=== PATIENT | male | born 1935 | race Caucasian/White ===

== ENCOUNTER 2018-05-19 17:10 | Inpatient (IN) | payer MEDICARE, OTHER ==
--- NOTE | 2018-05-19 17:18 | EDM.PDOC ---
ED HPI GENERAL MEDICAL PROBLEM - General Chief Complaint: General Stated Complaint: fever, cough, lethargic Time Seen by Provider: 05/19/18 17:10 Source of Information: Reports: Patient, Family, [facility] Records History Limitations: Reports: No Limitations - History of Present Illness INITIAL COMMENTS - FREE TEXT/NARRATIVE: in with c/o fever and chills, cough, not eating or drinking well for the past few days, no nvdc Onset: Gradual Duration: Other (past few days) Severity: Moderate Improves with: Reports: None Worsens with: Reports: None Associated Symptoms: Reports: Cough, Weakness Treatments SECURITIES ADVISER: Reports: Acetaminophen - Related Data Allergies Allergy/AdvReac Type Severity Reaction Status Date / Time No Known Allergies Allergy Verified 05/19/18 17:18 Home Meds: Home Meds Aspirin [Halfprin] 81 mg PO DAILY 05/30/15 [History] Carbidopa/Levodopa [Carbidopa-Levodopa 25-250] 1 each PO TID 05/30/15 [History] Cholecalciferol (Vitamin D3) [Vitamin D3] 2,000 unit PO DAILY 05/30/15 [History] Docusate Sodium 200 mg PO DAILY 05/30/15 [History] Magnesium 250 mg PO DAILY 05/30/15 [History] Polyethylene Glycol 3350 [Miralax] 17 gm PO DAILY 05/30/15 [History] Polyvinyl Alcohol [LiquiTears 1.4% Ophth Soln] 1 ml EYEBOTH Q1H PRN #1 bottle [Rx] Acetaminophen [Tylenol] 650 mg PO Q4H PRN 05/19/18 [History] LORazepam 0.25 mg PO BID 05/19/18 [History] Mag Hydrox/Aluminum Hyd/Simeth [Antacid Plus Anti-Gas Relf Liq] 30 ml PO QID PRN 05/19/18 [History] Magnesium Hydroxide [Milk of Magnesia] 30 ml PO DAILY PRN 05/19/18 [History] QUEtiapine [SEROquel] 12.5 mg PO DAILY 05/19/18 [History] QUEtiapine [SEROquel] 25 mg PO BEDTIME 05/19/18 [History] Rivastigmine 1 patch TOP DAILY 05/19/18 [History] Sertraline HCl 100 mg PO DAILY 05/19/18 [History] Past Medical History HEENT History: Reports: Allergic Rhinitis Cardiovascular History: Reports: High Cholesterol, Hypertension Respiratory History: Reports: SOB Gastrointestinal History: Reports: Chronic Constipation, Diverticulosis, Gastritis, Irritable Bowel Syndrome, Other (See Below) Other Gastrointestinal History: chronic abdmonial pain Genitourinary History: Reports: Prostate Disorder, Other (See Below) Other Genitourinary History: nocturia Musculoskeletal History: Reports: Arthritis, Osteoarthritis Neurological History: Reports: Parkinson's, TIA Psychiatric History: Reports: Anxiety Endocrine/Metabolic History: Reports: [place]'s Disease Hematologic History: Reports: B12 Deficiency, Other (See Below) Other Hematologic History: vitamin D deficiency Oncologic (Cancer) History: Reports: Prostate - Past Surgical History Musculoskeletal Surgical History: Reports: Shoulder Surgery, Other (See Below) Social & Family History - Family History Family Medical History: Noncontributory - Caffeine Use Caffeine Use: Reports: Coffee - Living Situation & Occupation Living situation: Reports: , with Family Occupation: Retired ED ROS GENERAL - Review of Systems Review Of Systems: See Below Constitutional: Reports: Fever, Chills HEENT: Reports: No Symptoms Respiratory: Reports: Cough Cardiovascular: Reports: No Symptoms Endocrine: Reports: No Symptoms GI/Abdominal: Reports: No Symptoms : Reports: No Symptoms Musculoskeletal: Reports: No Symptoms Skin: Reports: No Symptoms Neurological: Reports: No Symptoms Psychiatric: Reports: No Symptoms Hematologic/Lymphatic: Reports: No Symptoms Immunologic: Reports: No Symptoms ED EXAM, GENERAL - Physical Exam Exam: See Below Exam Limited By: No Limitations General Appearance: Alert, WD/WN, No Apparent Distress Ears: Normal External Exam, Normal Canal, Normal TMs Ear Exam: Bilateral Ear: Auricle Normal, Canal Normal, TM normal Nose: Normal Inspection, Normal Mucosa Throat/Mouth: Normal Inspection, Other (dry mucous membranes ) Head: Atraumatic, Normocephalic Neck: Normal Inspection, Supple, Non-Tender, Full Range of Motion Respiratory/Chest: No Respiratory Distress, Lungs Clear, Normal Breath Sounds, No Accessory Muscle Use Cardiovascular: Normal Peripheral Pulses, No Edema, Systolic Murmur Peripheral Pulses: 2+: Radial (L), Radial (R) GI/Abdominal: Normal Bowel Sounds, Soft, Non-Tender, No Distention Back Exam: Normal Inspection, Full Range of Motion Extremities: Normal Inspection, Normal Range of Motion, No Pedal Edema, Normal Capillary Refill Neurological: Alert, Normal Cognition, Normal Gait (normal for pt) Psychiatric: Normal Affect, Normal Mood Skin Exam: Warm, Dry, Intact, Normal Color, No Rash Lymphatic: No Adenopathy Course - Vital Signs Text/Narrative:: cxr shows a RLL pneumonia, the WBC is normal, CRP is elevated, the pt will be admitted for IV antibx and HHN tx, he will have cbc and bmp repeated in the am and changes will be made as needed to his tx plan. Last Recorded V/S: Last Vital Signs Temp 37.4 C 05/19/18 17:26 Pulse 120 H 05/19/18 17:16 Resp 20 05/19/18 17:16 BP 110/67 05/19/18 17:16 Pulse Ox 95 05/19/18 17:16 - Orders/Labs/Meds Orders: Active Orders 24 hr Category Date Time Status Patient Status [ADT] Routine ADT 05/19/18 18:09 Ordered Bedrest Bathroom Privileges [RC] ASDIRECTED Care 05/19/18 18:08 Ordered Height and Weight [RC] UPON Care 05/19/18 18:08 Ordered Intake and Output [RC] QSHIFT Care 05/19/18 18:13 Ordered Notify Provider Vital Signs [RC] ASDIRECTED Care 05/19/18 18:14 Ordered Oxygen Therapy [RC] PRN Care 05/19/18 18:09 Ordered Peripheral IV Care [RC] . DIRECTED Care 05/19/18 18:16 Ordered Pulse Oximetry [RC] PRN Care 05/19/18 18:13 Ordered RT Aerosol Therapy [RC] ASDIRECTED Care 05/19/18 18:16 Ordered Up to Chair [RC] ASDIRECTED Care 05/19/18 18:08 Ordered VTE/DVT Education [RC] PER UNIT ROUTINE Care 05/19/18 18:09 Ordered Vital Signs [RC] Q4H Care 05/19/18 18:09 Ordered 2 Gram Sodium Diet [DIET] Diet 05/19/18 Dinner Ordered Chest 1V Frontal [CR] Stat Exams 05/19/18 17:19 Taken BASIC METABOLIC PANEL,BMP [CHEM] DAILY Lab 05/19/18 18:15 Ordered C-REACTIVE PROTEIN [CHEM] DAILY Lab 05/19/18 18:15 Ordered CBC WITH AUTO DIFF [HEME] DAILY Lab 05/19/18 18:15 Ordered CULTURE BLOOD [BC] Stat Lab 05/19/18 17:19 Ordered CULTURE BLOOD [BC] Stat Lab 05/19/18 17:21 Ordered UA RFX HUMBERTO AND CULT IF INDIC [URIN] Stat Lab 05/19/18 17:21 Ordered UA W/MICROSCOPIC [URIN] Stat Lab 05/19/18 18:08 Ordered Acetaminophen [Tylenol] Med 05/19/18 18:08 Ordered 650 mg PO Q4H PRN Acetaminophen [Tylenol] Med 05/19/18 18:18 Ordered 650 mg PO Q4H PRN Albuterol/Ipratropium [DuoNeb 3.0-0.5 MG/3 ML] Med 05/19/18 18:15 Ordered 3 ml NEB Q6H Alum Hydrox/Mag Hydrox/Simeth [Mag-Al Plus] Med 05/19/18 18:18 Ordered 30 ml PO QID PRN Aspirin [Halfprin] Med 05/20/18 08:00 Ordered 81 mg PO DAILY Azithromycin [Zithromax] 500 mg Med 05/19/18 18:30 Ordered Sodium Chloride 0.9% [Normal Saline] 250 ml IV Q24H Carbidopa/Levodopa [Sinemet 25-250 mg] Med 05/19/18 20:00 Ordered 1 each PO TID Cholecalciferol (Vitamin D3) Med 05/20/18 08:00 Ordered 2,000 unit PO DAILY Docusate Sodium [Colace] Med 05/20/18 08:00 Ordered 200 mg PO DAILY LORazepam [Ativan] Med 05/19/18 20:00 Ordered 0.25 mg PO BID Magnesium Hydroxide [Milk of Magnesia] Med 05/19/18 18:18 Ordered 30 ml PO DAILY PRN Magnesium [Magnesium] Med 05/20/18 08:00 Ordered 250 mg PO DAILY Polyethylene Glycol 3350 [MiraLAX] Med 05/20/18 08:00 Ordered 17 gm PO DAILY Polyvinyl Alcohol [LiquiTears 1.4% Ophth Soln] Med 05/19/18 18:18 Ordered 1 ml EYEBOTH Q1H PRN QUEtiapine [SEROquel] Med 05/20/18 08:00 Ordered 12.5 mg PO DAILY QUEtiapine [SEROquel] Med 05/19/18 20:00 Ordered 25 mg PO BEDTIME Rivastigmine [Rivastigmine] Med 05/20/18 08:00 Ordered 1 patch TOP DAILY Sertraline [Zoloft] Med 05/20/18 08:00 Ordered 100 mg PO DAILY Sodium Chloride 0.9% [Saline Flush] Med 05/19/18 18:08 Ordered 10 ml FLUSH ASDIRECTED PRN cefTRIAXone [Rocephin] Med 05/20/18 18:30 Ordered 1 gm IVPUSH Q24H Peripheral IV Insertion Adult [OM.PC] Routine Oth 05/19/18 18:08 Ordered Resuscitation Status Routine Resus Stat 05/19/18 18:08 Ordered Medication Orders Acetaminophen (Tylenol) 650 mg PO Q4H PRN PRN Reason: Pain (Mild 1-3)/fever Acetaminophen (Tylenol) 650 mg PO Q4H PRN PRN Reason: Pain/Fever Al Hydroxide/Mg Hydroxide (Mag-Al Plus) 30 ml PO QID PRN PRN Reason: gastric distress Albuterol/Ipratropium (Duoneb 3.0-0.5 Mg/3 Ml) 3 ml NEB Q6H [facility] Artificial Tears (Liquitears 1.4% Ophth Soln) 1 ml EYEBOTH Q1H PRN PRN Reason: Dry Eyes Aspirin (Halfprin) 81 mg PO DAILY [facility] Carbidopa/Levodopa (Sinemet 25-250 Mg) tab PO TID [facility] Ceftriaxone Sodium (Rocephin) 1 gm IVPUSH Q24H [facility] Docusate Sodium (Colace) 200 mg PO DAILY [facility] Azithromycin 500 mg/ Sodium (Chloride) 250 mls @ 250 mls/hr IV Q24H [facility] Lorazepam (Ativan) 0.25 mg PO BID [facility] Magnesium Hydroxide (Milk Of Magnesia) 30 ml PO DAILY PRN PRN Reason: Constipation Non-Formulary Medication (Cholecalciferol (Vitamin D3)) 2,000 unit PO DAILY [facility] Non-Formulary Medication (Magnesium [Magnesium]) 250 mg PO DAILY [facility] Non-Formulary Medication (Rivastigmine [Rivastigmine]) 1 patch TOP DAILY [facility] Polyethylene Glycol (Miralax) 17 gm PO DAILY [facility] Quetiapine Fumarate (Seroquel) 12.5 mg PO DAILY [facility] Quetiapine Fumarate (Seroquel) 25 mg PO BEDTIME [facility] Sertraline HCl (Zoloft) 100 mg PO DAILY [facility] Sodium Chloride (Saline Flush) 10 ml FLUSH ASDIRECTED PRN PRN Reason: Keep Vein Open Labs: Laboratory Tests 05/19/18 05/19/18 05/19/18 Range/Units 15:45 15:50 17:45 WBC 9.3 (5.0-10.0) 10^3/uL RBC 3.70 L (4.50-6.00) 10^6/uL Hgb 11.5 L (14.0-18.0) g/dL Hct 34.3 L (40.0-54.0) % MCV 92.7 (82.0-94.0) fL MCH 31.1 (27.0-32.0) pg MCHC 33.5 (33.0-38.0) g/dL RDW Coeff of [place]usmane 12.4 (11.0-15.0) % Plt Count 156 (150-400) 10^3/uL Neut % (Auto) 84.0 (35-85) % Lymph % (Auto) 4.3 L (10-55) % [place] % (Auto) 11.6 (0-16) % Eos % (Auto) 0 (0-5) % Baso % (Auto) 0.1 (0-3) % Neut # (Auto) 7.85 H (1.80-7.00) 10^3/uL Lymph # (Auto) 0.40 L (1.00-4.80) 10^3/uL [place] # (Auto) 1.08 H (0.00-0.80) 10^3/uL Eos # (Auto) 0.00 (0.00-0.45) 10^3/uL Baso # (Auto) 0.01 10^3/uL Sodium 144 (136-145) mEq/L Potassium 4.0 (3.5-5.0) mEq/L Chloride 107 H (98-106) mEq/L Carbon Dioxide 26 (21-32) mmol/L BUN 20 H (7-18) mg/dL Creatinine 0.9 (0.7-1.3) mg/dL Est Cr Clr Drug Dosing 57.12 mL/min Estimated GFR (MDRD) > 60 (>=60) mL/min Glucose 113 H D (75-99) mg/dL Lactic Acid 1.0 (0.4-2.0) mmol/L Calcium 8.6 (8.4-10.1) mg/dL Total Bilirubin 1.2 H (0.0-1.0) mg/dL AST 39 H (15-37) U/L ALT 16 (12-78) U/L Alkaline Phosphatase 58 (46-116) U/L C-Reactive Protein 10.6 H (0.2-0.8) mg/dL Total Protein 6.3 L (6.4-8.2) g/dL Albumin 3.1 L (3.4-5.0) g/dL Meds: Medications Generic Name Dose Route Start Last Admin Trade Name Freq PRN Reason Stop Dose Admin Acetaminophen 650 mg 05/19/18 18:08 Tylenol PO Q4H PRN Pain (Mild 1-3)/fever Acetaminophen 650 mg 05/19/18 18:18 Tylenol PO Q4H PRN Pain/Fever Al Hydroxide/Mg Hydroxide 30 ml 05/19/18 18:18 Mag-Al Plus PO QID PRN gastric distress Albuterol/Ipratropium 3 ml 05/19/18 18:15 Duoneb 3.0-0.5 Mg/3 Ml NEB Q6H [facility] Artificial Tears 1 ml 05/19/18 18:18 Liquitears 1.4% Ophth Soln EYEBOTH Q1H PRN Dry Eyes Aspirin 81 mg 05/20/18 08:00 Halfprin PO DAILY [facility] Carbidopa/Levodopa tab 05/19/18 20:00 Sinemet 25-250 Mg PO TID [facility] Ceftriaxone Sodium 1 gm 05/20/18 18:30 Rocephin IVPUSH Q24H [facility] Docusate Sodium 200 mg 05/20/18 08:00 Colace PO DAILY [facility] Azithromycin 500 mg/ Sodium 250 mls @ 250 mls/hr 05/19/18 18:30 Chloride IV Q24H [facility] Lorazepam 0.25 mg 05/19/18 20:00 Ativan PO BID [facility] Magnesium Hydroxide 30 ml 05/19/18 18:18 Milk Of Magnesia PO DAILY PRN Constipation Non-Formulary Medication 2,000 unit 05/20/18 08:00 Cholecalciferol (Vitamin D3) PO DAILY [facility] Non-Formulary Medication 250 mg 05/20/18 08:00 Magnesium [Magnesium] PO DAILY [facility] Non-Formulary Medication 1 patch 05/20/18 08:00 Rivastigmine [Rivastigmine] TOP DAILY [facility] Polyethylene Glycol 17 gm 05/20/18 08:00 Miralax PO DAILY [facility] Quetiapine Fumarate 12.5 mg 05/20/18 08:00 Seroquel PO DAILY [facility] Quetiapine Fumarate 25 mg 05/19/18 20:00 Seroquel PO BEDTIME [facility] Sertraline HCl 100 mg 05/20/18 08:00 Zoloft PO DAILY [facility] Sodium Chloride 10 ml 05/19/18 18:08 Saline Flush FLUSH ASDIRECTED PRN Keep Vein Open Discontinued Medications Generic Name Dose Route Start Last Admin Trade Name Freq PRN Reason Stop Dose Admin Ceftriaxone Sodium 2 gm 05/19/18 18:21 Rocephin IVPUSH 05/19/18 18:22 ONETIME ONE Ceftriaxone Sodium 1 gm 05/19/18 18:30 Rocephin IVPUSH Q24H AZIZA Ibuprofen 600 mg 05/19/18 17:22 05/19/18 17:26 Motrin PO 05/19/18 17:23 600 mg ONETIME ONE Administration Ibuprofen Confirm 05/19/18 17:20 05/19/18 18:04 Motrin Administered 05/19/18 17:21 Not Given Dose 200 mg .ROUTE .STK-MED ONE Departure - Departure Time of Disposition: 18:26 Disposition: Admitted As Inpatient 64 Condition: Good Clinical Impression: Pneumonia, Fever - Discharge Information *PRESCRIPTION DRUG MONITORING PROGRAM REVIEWED*: Not Applicable *COPY OF PRESCRIPTION DRUG MONITORING REPORT IN PATIENT KATY: Not Applicable - Problem List & Annotations (1) Fever SNOMED Code(s): 637853837 Code(s): R50.9 - FEVER, UNSPECIFIED Status: Acute Priority: High Current Visit: Yes (2) Pneumonia SNOMED Code(s): 030709089 Code(s): J18.9 - PNEUMONIA, UNSPECIFIED ORGANISM Status: Acute Priority: High Current Visit: Yes - Problem List Review Problem List Initiated/Reviewed/Updated: Yes - My Orders Last 24 Hours: My Active Orders 05/19/18 17:19 Chest 1V Frontal [CR] Stat CULTURE BLOOD [BC] Stat 05/19/18 17:21 CULTURE BLOOD [BC] Stat UA RFX HUMBERTO AND CULT IF INDIC [URIN] Stat 05/19/18 18:08 Bedrest Bathroom Privileges [RC] ASDIRECTED Height and Weight [RC] UPON Up to Chair [RC] ASDIRECTED UA W/MICROSCOPIC [URIN] Stat Acetaminophen [Tylenol] 650 mg PO Q4H PRN Sodium Chloride 0.9% [Saline Flush] 10 ml FLUSH ASDIRECTED PRN Peripheral IV Insertion Adult [OM.PC] Routine Resuscitation Status Routine 05/19/18 18:09 Patient Status [ADT] Routine Oxygen Therapy [RC] PRN VTE/DVT Education [RC] PER UNIT ROUTINE Vital Signs [RC] Q4H 05/19/18 18:13 Intake and Output [RC] QSHIFT Pulse Oximetry [RC] PRN 05/19/18 18:14 Notify Provider Vital Signs [RC] ASDIRECTED 05/19/18 18:15 BASIC METABOLIC PANEL,BMP [CHEM] DAILY C-REACTIVE PROTEIN [CHEM] DAILY CBC WITH AUTO DIFF [HEME] DAILY Albuterol/Ipratropium [DuoNeb 3.0-0.5 MG/3 ML] 3 ml NEB Q6H 05/19/18 18:16 Peripheral IV Care [RC] . DIRECTED RT Aerosol Therapy [RC] ASDIRECTED 05/19/18 18:18 Acetaminophen [Tylenol] 650 mg PO Q4H PRN Alum Hydrox/Mag Hydrox/Simeth [Mag-Al Plus] 30 ml PO QID PRN Magnesium Hydroxide [Milk of Magnesia] 30 ml PO DAILY PRN Polyvinyl Alcohol [LiquiTears 1.4% Ophth Soln] 1 ml EYEBOTH Q1H PRN 05/19/18 18:30 Azithromycin [Zithromax] 500 mg Sodium Chloride 0.9% [Normal Saline] 250 ml IV Q24H 05/19/18 20:00 Carbidopa/Levodopa [Sinemet 25-250 mg] 1 each PO TID LORazepam [Ativan] 0.25 mg PO BID QUEtiapine [SEROquel] 25 mg PO BEDTIME 05/19/18 Dinner 2 Gram Sodium Diet [DIET] 05/20/18 08:00 Aspirin [Halfprin] 81 mg PO DAILY Cholecalciferol (Vitamin D3) 2,000 unit PO DAILY Docusate Sodium [Colace] 200 mg PO DAILY Magnesium [Magnesium] 250 mg PO DAILY Polyethylene Glycol 3350 [MiraLAX] 17 gm PO DAILY QUEtiapine [SEROquel] 12.5 mg PO DAILY Rivastigmine [Rivastigmine] 1 patch TOP DAILY Sertraline [Zoloft] 100 mg PO DAILY 05/20/18 18:30 cefTRIAXone [Rocephin] 1 gm IVPUSH Q24H - Assessment/Plan Admission H&P: Please use this note as an admission H&P Last 24 Hours: My Active Orders 05/19/18 17:19 Chest 1V Frontal [CR] Stat CULTURE BLOOD [BC] Stat 05/19/18 17:21 CULTURE BLOOD [BC] Stat UA RFX HUMBERTO AND CULT IF INDIC [URIN] Stat 05/19/18 18:08 Bedrest Bathroom Privileges [RC] ASDIRECTED Height and Weight [RC] UPON Up to Chair [RC] ASDIRECTED UA W/MICROSCOPIC [URIN] Stat Acetaminophen [Tylenol] 650 mg PO Q4H PRN Sodium Chloride 0.9% [Saline Flush] 10 ml FLUSH ASDIRECTED PRN Peripheral IV Insertion Adult [OM.PC] Routine Resuscitation Status Routine 05/19/18 18:09 Patient Status [ADT] Routine Oxygen Therapy [RC] PRN VTE/DVT Education [RC] PER UNIT ROUTINE Vital Signs [RC] Q4H 05/19/18 18:13 Intake and Output [RC] QSHIFT Pulse Oximetry [RC] PRN 05/19/18 18:14 Notify Provider Vital Signs [RC] ASDIRECTED 05/19/18 18:15 BASIC METABOLIC PANEL,BMP [CHEM] DAILY C-REACTIVE PROTEIN [CHEM] DAILY CBC WITH AUTO DIFF [HEME] DAILY Albuterol/Ipratropium [DuoNeb 3.0-0.5 MG/3 ML] 3 ml NEB Q6H 05/19/18 18:16 Peripheral IV Care [RC] . DIRECTED RT Aerosol Therapy [RC] ASDIRECTED 05/19/18 18:18 Acetaminophen [Tylenol] 650 mg PO Q4H PRN Alum Hydrox/Mag Hydrox/Simeth [Mag-Al Plus] 30 ml PO QID PRN Magnesium Hydroxide [Milk of Magnesia] 30 ml PO DAILY PRN Polyvinyl Alcohol [LiquiTears 1.4% Ophth Soln] 1 ml EYEBOTH Q1H PRN 05/19/18 18:30 Azithromycin [Zithromax] 500 mg Sodium Chloride 0.9% [Normal Saline] 250 ml IV Q24H 05/19/18 20:00 Carbidopa/Levodopa [Sinemet 25-250 mg] 1 each PO TID LORazepam [Ativan] 0.25 mg PO BID QUEtiapine [SEROquel] 25 mg PO BEDTIME 05/19/18 Dinner 2 Gram Sodium Diet [DIET] 05/20/18 08:00 Aspirin [Halfprin] 81 mg PO DAILY Cholecalciferol (Vitamin D3) 2,000 unit PO DAILY Docusate Sodium [Colace] 200 mg PO DAILY Magnesium [Magnesium] 250 mg PO DAILY Polyethylene Glycol 3350 [MiraLAX] 17 gm PO DAILY QUEtiapine [SEROquel] 12.5 mg PO DAILY Rivastigmine [Rivastigmine] 1 patch TOP DAILY Sertraline [Zoloft] 100 mg PO DAILY 05/20/18 18:30 cefTRIAXone [Rocephin] 1 gm IVPUSH Q24H Plan: as above
[2018-05-19] MEDS ORDERED: Ibuprofen 200 MG Tab ONE (17:20)
[2018-05-19] MEDS ORDERED: Ibuprofen 200 MG Tab PO ONE (17:22)
[2018-05-19] MEDS ORDERED: Sodium Chloride 0.9% 10 ML Syringe FLUSH PRN (18:08)
[2018-05-19 18:12] LABS: CHLORIDE,CL 107 mEq/L (98-106); SODIUM,NA 144 mEq/L (136-145)
[2018-05-19] MEDS ORDERED: Albuterol/Ipratropium 3.0-0.5 MG/3 ML Neb Soln NEB SCH (18:15)
[2018-05-19] MEDS ORDERED: Polyvinyl Alcohol 1.4% Ophth Soln 15 ML Bottle EYEBOTH PRN (18:18)
[2018-05-19] MEDS ORDERED: Aluminum Hydroxide/Magnesium Hydroxide/Simethicone Susp 30 ML Cup PO PRN (18:18)
[2018-05-19] MEDS ORDERED: Magnesium Hydroxide 400 MG/5 ML Susp 30 ML Cup PO PRN (18:18)
[2018-05-19] MEDS ORDERED: Acetaminophen 325 MG Tab PO PRN (18:18)
[2018-05-19] MEDS ORDERED: cefTRIAXone 2 GM Vial IVPUSH ONE (18:21)
[2018-05-19] MEDS ORDERED: cefTRIAXone 1 GM Vial IVPUSH SCH (18:30)
[2018-05-19] MEDS ORDERED: Albuterol/Ipratropium 3.0-0.5 MG/3 ML Neb Soln NEB PRN (19:31)
[2018-05-19] MEDS: Azithromycin 500 MG in Sodium Chloride 0.9% 250 ML IV SCH (19:36)
[2018-05-19] MEDS: Carbidopa/Levodopa 25-250 MG Tab PO SCH (19:39)
[2018-05-19] MEDS: QUEtiapine 25 MG Tab PO SCH (19:39)
[2018-05-19] MEDS: LORazepam 0.5 MG Tab PO SCH (19:45)
[2018-05-19] MEDS: Enoxaparin 40 MG/0.4 ML Syringe SUBCUT SCH (20:12)
[2018-05-20] MEDS: Albuterol/Ipratropium 3.0-0.5 MG/3 ML Neb Soln NEB SCH ×4 (07:46→19:32)
[2018-05-20] MEDS: Aspirin 81 MG Tab.EC PO SCH (07:47)
[2018-05-20] MEDS: Docusate Sodium 100 MG Cap PO SCH (07:47)
[2018-05-20] MEDS: Polyethylene Glycol 3350 Powder 17 GM Packet PO SCH (07:48)
[2018-05-20] MEDS: RIVASTIGMINE 13.3 MG TOP SCH (07:49)
[2018-05-20] MEDS: LORazepam 0.5 MG Tab PO SCH ×2 (07:50→19:33)
[2018-05-20] MEDS: Carbidopa/Levodopa 25-250 MG Tab PO SCH ×3 (07:51→19:34)
[2018-05-20] MEDS: QUEtiapine 25 MG Tab PO SCH ×2 (07:51→19:34)
[2018-05-20] MEDS: Sertraline 100 MG Tab PO SCH (07:52)
[2018-05-20 07:55] LABS: CHLORIDE,CL 108 mEq/L (98-106); SODIUM,NA 145 mEq/L (136-145)
[2018-05-20] MEDS ORDERED: CHOLECALCIFEROL 2000 UNIT PO SCH (08:00)
[2018-05-20] MEDS ORDERED: Non-Formulary Medication 1 Each (Magnesium [Magnesium] 250 MG) PO SCH (08:00)
--- NOTE | 2018-05-20 09:44 | PCM.PN ---
- General Info Date of Service: 05/20/18 Admission Dx/Problem (Free Text): RLL pneumonia - Review of Systems General: Reports: No Symptoms, Weakness. Denies: Fever HEENT: Reports: No Symptoms Pulmonary: Reports: Cough, Wheezing Cardiovascular: Reports: No Symptoms Gastrointestinal: Reports: No Symptoms Genitourinary: Reports: No Symptoms Musculoskeletal: Reports: No Symptoms Skin: Reports: No Symptoms Neurological: Reports: No Symptoms Psychiatric: Reports: No Symptoms - Patient Data Vitals - Most Recent: Last Vital Signs Temp 36.4 C 05/20/18 07:09 Pulse 88 05/20/18 07:09 Resp 16 05/20/18 07:09 BP 107/62 05/20/18 07:09 Pulse Ox 97 05/20/18 07:09 Weight - Most Recent: 67.449 kg I&O - Last 24 Hours: Intake & Output 05/19/18 05/20/18 05/20/18 22:59 06:59 14:59 Output Total 200 350 Balance -200 -350 Lab Results Last 24 Hours: Laboratory Results - last 24 hr 05/19/18 05/19/18 05/19/18 Range/Units 15:45 15:50 17:45 WBC 9.3 (5.0-10.0) 10^3/uL RBC 3.70 L (4.50-6.00) 10^6/uL Hgb 11.5 L (14.0-18.0) g/dL Hct 34.3 L (40.0-54.0) % MCV 92.7 (82.0-94.0) fL MCH 31.1 (27.0-32.0) pg MCHC 33.5 (33.0-38.0) g/dL RDW Coeff of Ousmane 12.4 (11.0-15.0) % Plt Count 156 (150-400) 10^3/uL Neut % (Auto) 84.0 (35-85) % Lymph % (Auto) 4.3 L (10-55) % [place] % (Auto) 11.6 (0-16) % Eos % (Auto) 0 (0-5) % Baso % (Auto) 0.1 (0-3) % Neut # (Auto) 7.85 H (1.80-7.00) 10^3/uL Lymph # (Auto) 0.40 L (1.00-4.80) 10^3/uL [place] # (Auto) 1.08 H (0.00-0.80) 10^3/uL Eos # (Auto) 0.00 (0.00-0.45) 10^3/uL Baso # (Auto) 0.01 10^3/uL Sodium 144 (136-145) mEq/L Potassium 4.0 (3.5-5.0) mEq/L Chloride 107 H (98-106) mEq/L Carbon Dioxide 26 (21-32) mmol/L BUN 20 H (7-18) mg/dL Creatinine 0.9 (0.7-1.3) mg/dL Est Cr Clr Drug Dosing 57.12 mL/min Estimated GFR (MDRD) > 60 (>=60) mL/min Glucose 113 H D (75-99) mg/dL Lactic Acid 1.0 (0.4-2.0) mmol/L Calcium 8.6 (8.4-10.1) mg/dL Total Bilirubin 1.2 H (0.0-1.0) mg/dL AST 39 H (15-37) U/L ALT 16 (12-78) U/L Alkaline Phosphatase 58 (46-116) U/L C-Reactive Protein 10.6 H (0.2-0.8) mg/dL Total Protein 6.3 L (6.4-8.2) g/dL Albumin 3.1 L (3.4-5.0) g/dL Urine Color (YELLOW) Urine Appearance (CLEAR) Urine pH (4.5-8.0) Ur Specific [place] (1.003-1.020) Urine Protein (NEGATIVE) mg/dL Urine Glucose (UA) (NEGATIVE) mg/dL Urine Ketones (NEGATIVE) mg/dL Urine Occult Blood (NEGATIVE) Urine Nitrite (NEGATIVE) Urine Bilirubin (NEGATIVE) Urine Urobilinogen (0.2-1.0) EU/dL Ur Leukocyte Esterase (NEGATIVE) Urine RBC (0-5) /HPF Urine WBC (0-5) /HPF Ur Epithelial Cells (NOT SEEN) /HPF Urine Bacteria (NOT SEEN) /HPF Hyaline Casts (NOT SEEN) /LPF Granular Casts (NOT SEEN) /LPF Urine Mucus (NOT SEEN) /HPF 01/05/20/18 05/20/18 Range/Units 03:00 07:25 07:25 WBC 7.2 (5.0-10.0) 10^3/uL RBC 3.58 L (4.50-6.00) 10^6/uL Hgb 10.9 L (14.0-18.0) g/dL Hct 33.4 L (40.0-54.0) % MCV 93.3 (82.0-94.0) fL MCH 30.4 (27.0-32.0) pg MCHC 32.6 L (33.0-38.0) g/dL RDW Coeff of Ousmane 12.3 (11.0-15.0) % Plt Count 150 (150-400) 10^3/uL Neut % (Auto) 78.1 (35-85) % Lymph % (Auto) 9.7 L (10-55) % [place] % (Auto) 11.8 (0-16) % Eos % (Auto) 0.3 (0-5) % Baso % (Auto) 0.1 (0-3) % Neut # (Auto) 5.62 (1.80-7.00) 10^3/uL Lymph # (Auto) 0.70 L (1.00-4.80) 10^3/uL [place] # (Auto) 0.85 H (0.00-0.80) 10^3/uL Eos # (Auto) 0.02 (0.00-0.45) 10^3/uL Baso # (Auto) 0.01 10^3/uL Sodium 145 (136-145) mEq/L Potassium 3.8 (3.5-5.0) mEq/L Chloride 108 H (98-106) mEq/L Carbon Dioxide 26 (21-32) mmol/L BUN 24 H (7-18) mg/dL Creatinine 0.9 (0.7-1.3) mg/dL Est Cr Clr Drug Dosing 57.12 mL/min Estimated GFR (MDRD) > 60 (>=60) mL/min Glucose 110 H (75-99) mg/dL Lactic Acid (0.4-2.0) mmol/L Calcium 8.6 (8.4-10.1) mg/dL Total Bilirubin (0.0-1.0) mg/dL AST (15-37) U/L ALT (12-78) U/L Alkaline Phosphatase (46-116) U/L C-Reactive Protein 14.5 H (0.2-0.8) mg/dL Total Protein (6.4-8.2) g/dL Albumin (3.4-5.0) g/dL Urine Color Dark yellow (YELLOW) Urine Appearance Slightly cloudy (CLEAR) Urine pH 5.0 (4.5-8.0) Ur Specific [place] >= 1.030 H (1.003-1.020) Urine Protein 30 H (NEGATIVE) mg/dL Urine Glucose (UA) Negative (NEGATIVE) mg/dL Urine Ketones 15 H (NEGATIVE) mg/dL Urine Occult Blood Negative (NEGATIVE) Urine Nitrite Negative (NEGATIVE) Urine Bilirubin Negative (NEGATIVE) Urine Urobilinogen 0.2 (0.2-1.0) EU/dL Ur Leukocyte Esterase Negative (NEGATIVE) Urine RBC Not seen (0-5) /HPF Urine WBC 0-5 (0-5) /HPF Ur Epithelial Cells Few H (NOT SEEN) /HPF Urine Bacteria Few H (NOT SEEN) /HPF Hyaline Casts Occasional H (NOT SEEN) /LPF Granular Casts Occasional (NOT SEEN) /LPF Urine Mucus Moderate H (NOT SEEN) /HPF Herb Results Last 24 Hours: Microbiology 05/19/18 15:40 Influenza Type A Antigen Screen - Final Nasal, Unspecified NEGATIVE INFLUENZA A VIRUS AG Influenza Type B Antigen Screen - Final NEGATIVE INFLUENZA B VIRUS AG Med Orders - Current: Current Medications Acetaminophen (Tylenol) 650 mg PO Q4H PRN PRN Reason: Pain (Mild 1-3)/fever Acetaminophen (Tylenol) 650 mg PO Q4H PRN PRN Reason: Pain/Fever Al Hydroxide/Mg Hydroxide (Mag-Al Plus) 30 ml PO QID PRN PRN Reason: gastric distress Albuterol/Ipratropium (Duoneb 3.0-0.5 Mg/3 Ml) 3 ml NEB QIDRT [facility] Last Admin: 05/20/18 07:46 Dose: 3 ml Albuterol/Ipratropium (Duoneb 3.0-0.5 Mg/3 Ml) 3 ml NEB Q4H PRN PRN Reason: Dyspnea Artificial Tears (Liquitears 1.4% Ophth Soln) 1 ml EYEBOTH Q1H PRN PRN Reason: Dry Eyes Aspirin (Halfprin) 81 mg PO DAILY [facility] Last Admin: 05/20/18 07:47 Dose: 81 mg Carbidopa/Levodopa (Sinemet 25-250 Mg) 1 tab PO TID [facility] Last Admin: 05/20/18 07:51 Dose: 1 tab Ceftriaxone Sodium (Rocephin) 1 gm IVPUSH Q24H [facility] Cholecalciferol (Vitamin D3) 2,000 units PO DAILY [facility] Docusate Sodium (Colace) 200 mg PO DAILY [facility] Last Admin: 05/20/18 07:47 Dose: 200 mg Enoxaparin Sodium (Lovenox) 40 mg SUBCUT Q24H [facility] Last Admin: 05/19/18 20:12 Dose: 40 mg Azithromycin 500 mg/ Sodium (Chloride) 250 mls @ 250 mls/hr IV Q24H [facility] Last Admin: 05/19/18 19:36 Dose: 250 mls/hr Lorazepam (Ativan) 0.25 mg PO BID [facility] Last Admin: 05/20/18 07:50 Dose: 0.25 mg Magnesium Hydroxide (Milk Of Magnesia) 30 ml PO DAILY PRN PRN Reason: Constipation Magnesium Oxide (Magnesium Oxide) 250 mg PO DAILY [facility] Rivastigmine 13.3mg (Patch Own Med ) 1 patch TOP DAILY [facility] Last Admin: 05/20/18 07:49 Dose: 1 patch Polyethylene Glycol (Miralax) 17 gm PO DAILY [facility] Last Admin: 05/20/18 07:48 Dose: 17 gm Quetiapine Fumarate (Seroquel) 12.5 mg PO DAILY [facility] Last Admin: 05/20/18 07:51 Dose: 12.5 mg Quetiapine Fumarate (Seroquel) 25 mg PO BEDTIME [facility] Last Admin: 05/19/18 19:39 Dose: 25 mg Sertraline HCl (Zoloft) 100 mg PO DAILY [facility] Last Admin: 05/20/18 07:52 Dose: 100 mg Sodium Chloride (Saline Flush) 10 ml FLUSH ASDIRECTED PRN PRN Reason: Keep Vein Open Discontinued Medications Albuterol/Ipratropium (Duoneb 3.0-0.5 Mg/3 Ml) 3 ml NEB Q6H [facility] Last Admin: 05/19/18 19:34 Dose: 3 ml Ceftriaxone Sodium (Rocephin) 2 gm IVPUSH ONETIME ONE Stop: 05/19/18 18:22 Last Admin: 05/19/18 19:32 Dose: 2 gm Ceftriaxone Sodium (Rocephin) 1 gm IVPUSH Q24H [facility] Ibuprofen (Motrin) 600 mg PO ONETIME ONE Stop: 05/19/18 17:23 Last Admin: 05/19/18 17:26 Dose: 600 mg Ibuprofen (Motrin) Confirm Administered Dose 200 mg .ROUTE .STK-MED ONE Stop: 05/19/18 17:21 Last Admin: 05/19/18 18:04 Dose: Not Given Non-Formulary Medication (Cholecalciferol (Vitamin D3)) 2,000 unit PO DAILY [facility] Non-Formulary Medication (Magnesium [Magnesium]) 250 mg PO DAILY [facility] - Exam General: Alert, Oriented (normal for pt) HEENT: Mucous Membr. Moist/[place] Neck: Supple, Trachea Midline Lungs: Rhonchi (in bases, right more than left). No: Clear to Auscultation Cardiovascular: Regular Rate, Regular Rhythm GI/Abdominal Exam: Normal Bowel Sounds, Soft, Non-Tender, No Distention Back Exam: Normal Inspection, Full Range of Motion Extremities: Normal Inspection, Normal Range of Motion, Non-Tender, No Pedal Edema, Normal Capillary Refill Peripheral Pulses: 2+: Radial (L), Radial (R), Dorsalis Pedis (L), Dorsalis Pedis (R) Skin: Warm, Dry, Intact Neurological: No New Focal Deficit Psy/Mental Status: Alert, Normal Affect, Normal Mood - Problem List & Annotations (1) Fever SNOMED Code(s): 050211148 Code(s): R50.9 - FEVER, UNSPECIFIED Status: Acute Priority: High Current Visit: Yes (2) Pneumonia SNOMED Code(s): 499294685 Code(s): J18.9 - PNEUMONIA, UNSPECIFIED ORGANISM Status: Acute Priority: High Current Visit: Yes - Problem List Review Problem List Initiated/Reviewed/Updated: Yes - My Orders Last 24 Hours: My Active Orders 05/19/18 15:45 CULTURE BLOOD [BC] Stat CULTURE BLOOD [BC] Stat 05/19/18 17:19 Chest 1V Frontal [CR] Stat 05/19/18 18:08 Bedrest Bathroom Privileges [RC] .PRN Height and Weight [RC] 0500 Up to Chair [RC] .PRN Acetaminophen [Tylenol] 650 mg PO Q4H PRN Sodium Chloride 0.9% [Saline Flush] 10 ml FLUSH ASDIRECTED PRN Peripheral IV Insertion Adult [OM.PC] Routine Resuscitation Status Routine 05/19/18 18:09 Patient Status [ADT] Routine Oxygen Therapy [RC] .PRN Vital Signs [RC] 0000,0400,0800,1200,1600,199905/19/18 18:13 Intake and Output [RC] 0600,1800 Pulse Oximetry [RC] .PRN 05/19/18 18:14 Notify Provider Vital Signs [RC] .PRN 05/19/18 18:16 RT Aerosol Therapy [RC] 0800,1200,1600,199905/19/18 18:18 Acetaminophen [Tylenol] 650 mg PO Q4H PRN Alum Hydrox/Mag Hydrox/Simeth [Mag-Al Plus] 30 ml PO QID PRN Magnesium Hydroxide [Milk of Magnesia] 30 ml PO DAILY PRN Polyvinyl Alcohol [LiquiTears 1.4% Ophth Soln] 1 ml EYEBOTH Q1H PRN 05/19/18 18:30 Azithromycin [Zithromax] 500 mg Sodium Chloride 0.9% [Normal Saline] 250 ml IV Q24H 05/19/18 19:31 Albuterol/Ipratropium [DuoNeb 3.0-0.5 MG/3 ML] 3 ml NEB Q4H PRN 05/19/18 20:00 Carbidopa/Levodopa [Sinemet 25-250 mg] 1 tab PO TID Enoxaparin [Lovenox] 40 mg SUBCUT Q24H LORazepam [Ativan] 0.25 mg PO BID QUEtiapine [SEROquel] 25 mg PO BEDTIME 05/19/18 Dinner 2 Gram Sodium Diet [DIET] 05/20/18 08:00 Albuterol/Ipratropium [DuoNeb 3.0-0.5 MG/3 ML] 3 ml NEB QIDRT Aspirin [Halfprin] 81 mg PO DAILY Docusate Sodium [Colace] 200 mg PO DAILY Polyethylene Glycol 3350 [MiraLAX] 17 gm PO DAILY QUEtiapine [SEROquel] 12.5 mg PO DAILY Rivastigmine [Rivastigmine] 1 patch TOP DAILY Sertraline [Zoloft] 100 mg PO DAILY 05/20/18 08:02 Magnesium Oxide 250 mg PO DAILY 05/20/18 08:03 Cholecalciferol (Vitamin D3) [Vitamin D3] 2,000 units PO DAILY 05/20/18 18:30 cefTRIAXone [Rocephin] 1 gm IVPUSH Q24H 05/21/18 05:00 CBC WITH AUTO DIFF [HEME] DAILY 05/21/18 18:30 BASIC METABOLIC PANEL,BMP [CHEM] DAILY 05/22/18 05:00 CBC WITH AUTO DIFF [HEME] DAILY 05/22/18 18:30 BASIC METABOLIC PANEL,BMP [CHEM] DAILY - Assessment Assessment:: pts cbc and chem are stable, CRP did go up, pt appears to be improving from yesterday, oral mucosa is now moist. - Plan Plan:: will continue current tx plan, will plan dc in the am
[2018-05-20] MEDS: Sodium Chloride 0.9% 1,000 ML IV SCH ×2 (11:35→20:08)
[2018-05-20] MEDS: Acetaminophen 325 MG Tab PO PRN (16:39)
[2018-05-20] MEDS: cefTRIAXone 1 GM Vial IVPUSH SCH ×2 (17:10→18:31)
[2018-05-20] MEDS: Azithromycin 500 MG in Sodium Chloride 0.9% 250 ML IV SCH ×2 (17:19→18:31)
[2018-05-20] MEDS: Enoxaparin 40 MG/0.4 ML Syringe SUBCUT SCH (19:31)
[2018-05-21] MEDS: Sodium Chloride 0.9% 1,000 ML IV SCH (06:07)
[2018-05-21] MEDS: LORazepam 0.5 MG Tab PO SCH ×2 (07:30→19:41)
[2018-05-21] MEDS: Docusate Sodium 100 MG Cap PO SCH (07:31)
[2018-05-21] MEDS: Albuterol/Ipratropium 3.0-0.5 MG/3 ML Neb Soln NEB SCH ×4 (07:31→19:41)
[2018-05-21] MEDS: Aspirin 81 MG Tab.EC PO SCH (07:33)
[2018-05-21] MEDS: Polyethylene Glycol 3350 Powder 17 GM Packet PO SCH (07:33)
[2018-05-21] MEDS: RIVASTIGMINE 13.3 MG TOP SCH (07:34)
[2018-05-21] MEDS: QUEtiapine 25 MG Tab PO SCH ×2 (07:36→19:41)
[2018-05-21] MEDS: Carbidopa/Levodopa 25-250 MG Tab PO SCH ×3 (07:37→19:42)
[2018-05-21] MEDS: Sertraline 100 MG Tab PO SCH (07:37)
[2018-05-21] MEDS: Cholecalciferol (Vitamin D3) 1,000 Unit Tab PO SCH (07:37)
[2018-05-21 08:20] LABS: CHLORIDE,CL 109 mEq/L (98-106); SODIUM,NA 144 mEq/L (136-145)
[2018-05-21] MEDS ORDERED: cefTRIAXone 1 GM Vial IVPUSH SCH (16:00)
[2018-05-21] MEDS ORDERED: Azithromycin 500 MG in Sodium Chloride 0.9% 250 ML IV SCH (16:00)
[2018-05-21] MEDS: Enoxaparin 40 MG/0.4 ML Syringe SUBCUT SCH (19:41)
[2018-05-21] MEDS: Acetaminophen 325 MG Tab PO PRN (19:43)
--- NOTE | 2018-05-21 19:49 | PCM.PN ---
- General Info Date of Service: 05/21/18 Admission Dx/Problem (Free Text): RLL pneumonia Functional Status: Reports: Tolerating Diet - Review of Systems General: Reports: Weakness, Other (Review of systems difficult to obtain. Patient disoriented. Denies pain when asked. Offers no complaints. Discusses that he is worried about "the plane landing".). Denies: Fever - Patient Data Vitals - Most Recent: Last Vital Signs Temp 97.4 F 05/21/18 15:53 Pulse 108 H 05/21/18 15:53 Resp 20 05/21/18 15:53 BP 127/80 05/21/18 15:53 Pulse Ox 98 05/21/18 15:53 Weight - Most Recent: 152 lb 9.6 oz I&O - Last 24 Hours: Intake & Output 05/21/18 05/21/18 05/21/18 06:59 14:59 22:59 Intake Total 1450 550 200 Output Total 350 500 300 Balance 1100 50 -100 Lab Results Last 24 Hours: Laboratory Results - last 24 hr 05/21/18 05/21/18 Range/Units 07:10 07:10 WBC 6.7 (5.0-10.0) 10^3/uL RBC 3.54 L (4.50-6.00) 10^6/uL Hgb 10.9 L (14.0-18.0) g/dL Hct 33.4 L (40.0-54.0) % MCV 94.4 H (82.0-94.0) fL MCH 30.8 (27.0-32.0) pg MCHC 32.6 L (33.0-38.0) g/dL RDW Coeff of Ousmane 12.4 (11.0-15.0) % Plt Count 170 (150-400) 10^3/uL Neut % (Auto) 80.8 (35-85) % Lymph % (Auto) 8.5 L (10-55) % [place] % (Auto) 10.2 (0-16) % Eos % (Auto) 0.4 (0-5) % Baso % (Auto) 0.1 (0-3) % Neut # (Auto) 5.44 (1.80-7.00) 10^3/uL Lymph # (Auto) 0.57 L (1.00-4.80) 10^3/uL [place] # (Auto) 0.69 (0.00-0.80) 10^3/uL Eos # (Auto) 0.03 (0.00-0.45) 10^3/uL Baso # (Auto) 0.01 10^3/uL Sodium 144 (136-145) mEq/L Potassium 4.0 (3.5-5.0) mEq/L Chloride 109 H (98-106) mEq/L Carbon Dioxide 29 (21-32) mmol/L BUN 18 (7-18) mg/dL Creatinine 0.8 (0.7-1.3) mg/dL Est Cr Clr Drug Dosing 64.26 mL/min Estimated GFR (MDRD) > 60 (>=60) mL/min Glucose 86 (75-99) mg/dL Calcium 8.2 L (8.4-10.1) mg/dL Herb Results Last 24 Hours: Microbiology 05/19/18 15:45 Aerobic Blood Culture - Preliminary Blood NO GROWTH AFTER 2 DAYS Anaerobic Blood Culture - Preliminary NO GROWTH AFTER 2 DAYS 05/19/18 15:45 Aerobic Blood Culture - Preliminary Blood NO GROWTH AFTER 2 DAYS Anaerobic Blood Culture - Preliminary NO GROWTH AFTER 2 DAYS Med Orders - Current: Current Medications Acetaminophen (Tylenol) 650 mg PO Q4H PRN PRN Reason: Pain (Mild 1-3)/fever Last Admin: 05/20/18 16:39 Dose: 650 mg Acetaminophen (Tylenol) 650 mg PO Q4H PRN PRN Reason: Pain/Fever Al Hydroxide/Mg Hydroxide (Mag-Al Plus) 30 ml PO QID PRN PRN Reason: gastric distress Albuterol/Ipratropium (Duoneb 3.0-0.5 Mg/3 Ml) 3 ml NEB QIDRT [facility] Last Admin: 05/21/18 15:50 Dose: 3 ml Albuterol/Ipratropium (Duoneb 3.0-0.5 Mg/3 Ml) 3 ml NEB Q4H PRN PRN Reason: Dyspnea Artificial Tears (Liquitears 1.4% Ophth Soln) 1 ml EYEBOTH Q1H PRN PRN Reason: Dry Eyes Aspirin (Halfprin) 81 mg PO DAILY [facility] Last Admin: 05/21/18 07:33 Dose: 81 mg Carbidopa/Levodopa (Sinemet 25-250 Mg) 1 tab PO TID [facility] Last Admin: 05/21/18 13:13 Dose: 1 tab Ceftriaxone Sodium (Rocephin) 1 gm IVPUSH 1600 [facility] Last Admin: 05/21/18 16:55 Dose: 1 gm Cholecalciferol (Vitamin D3) 2,000 units PO DAILY [facility] Last Admin: 05/21/18 07:37 Dose: 2,000 units Docusate Sodium (Colace) 200 mg PO DAILY [facility] Last Admin: 05/21/18 07:31 Dose: 200 mg Enoxaparin Sodium (Lovenox) 40 mg SUBCUT Q24H [facility] Last Admin: 05/20/18 19:31 Dose: 40 mg Azithromycin 500 mg/ Sodium (Chloride) 250 mls @ 250 mls/hr IV 1600 [facility] Last Admin: 05/21/18 15:46 Dose: 250 mls/hr Lorazepam (Ativan) 0.25 mg PO BID [facility] Last Admin: 05/21/18 07:30 Dose: 0.25 mg Magnesium Hydroxide (Milk Of Magnesia) 30 ml PO DAILY PRN PRN Reason: Constipation Magnesium Oxide (Magnesium Oxide) 250 mg PO DAILY [facility] Last Admin: 05/21/18 07:33 Dose: 250 mg Rivastigmine 13.3mg (Patch Own Med ) 1 patch TOP DAILY [facility] Last Admin: 05/21/18 07:34 Dose: 1 patch Polyethylene Glycol (Miralax) 17 gm PO DAILY [facility] Last Admin: 05/21/18 07:33 Dose: 17 gm Quetiapine Fumarate (Seroquel) 12.5 mg PO DAILY [facility] Last Admin: 05/21/18 07:36 Dose: 12.5 mg Quetiapine Fumarate (Seroquel) 25 mg PO BEDTIME [facility] Last Admin: 05/20/18 19:34 Dose: 25 mg Sertraline HCl (Zoloft) 100 mg PO DAILY [facility] Last Admin: 05/21/18 07:37 Dose: 100 mg Sodium Chloride (Saline Flush) 10 ml FLUSH ASDIRECTED PRN PRN Reason: Keep Vein Open Discontinued Medications Albuterol/Ipratropium (Duoneb 3.0-0.5 Mg/3 Ml) 3 ml NEB Q6H [facility] Last Admin: 05/19/18 19:34 Dose: 3 ml Ceftriaxone Sodium (Rocephin) 2 gm IVPUSH ONETIME ONE Stop: 05/19/18 18:22 Last Admin: 05/19/18 19:32 Dose: 2 gm Ceftriaxone Sodium (Rocephin) 1 gm IVPUSH Q24H [facility] Ceftriaxone Sodium (Rocephin) 1 gm IVPUSH Q24H [facility] Last Admin: 05/20/18 18:31 Dose: Not Given Azithromycin 500 mg/ Sodium (Chloride) 250 mls @ 250 mls/hr IV Q24H [facility] Last Admin: 05/20/18 18:31 Dose: Not Given Sodium Chloride (Normal Saline) 1,000 mls @ 100 mls/hr IV ASDIRECTED [facility] Last Admin: 05/21/18 06:07 Dose: 125 mls/hr Ibuprofen (Motrin) 600 mg PO ONETIME ONE Stop: 05/19/18 17:23 Last Admin: 05/19/18 17:26 Dose: 600 mg Ibuprofen (Motrin) Confirm Administered Dose 200 mg .ROUTE .STK-MED ONE Stop: 05/19/18 17:21 Last Admin: 05/19/18 18:04 Dose: Not Given Non-Formulary Medication (Cholecalciferol (Vitamin D3)) 2,000 unit PO DAILY [facility] Last Admin: 05/20/18 10:16 Dose: Not Given Non-Formulary Medication (Magnesium [Magnesium]) 250 mg PO DAILY [facility] Last Admin: 05/20/18 10:16 Dose: Not Given - Exam General: Alert, Cooperative. No: Oriented HEENT: Mucous Membr. Moist/[place] Neck: Supple Lungs: Crackles (RLL) Cardiovascular: Regular Rate, Regular Rhythm GI/Abdominal Exam: Normal Bowel Sounds, Soft, Non-Tender Extremities: Normal Inspection, No Pedal Edema Skin: Warm, Dry Neurological: No New Focal Deficit - Problem List & Annotations (1) Palliative care status SNOMED Code(s): 532674614 Code(s): Z51.5 - ENCOUNTER FOR PALLIATIVE CARE Status: Acute Priority: High Current Visit: Yes (2) Pneumonia SNOMED Code(s): 110362189 Code(s): J18.9 - PNEUMONIA, UNSPECIFIED ORGANISM Status: Acute Priority: High Current Visit: Yes Qualifiers: Laterality: right Lung location: lower lobe of lung - Problem List Review Problem List Initiated/Reviewed/Updated: Yes - Assessment Assessment:: RLL Pneumonia - Plan Plan:: 05-21-2018 Patient up in chair, tolerating breakfast without concern. NO shortness of breath noted. Oxygen sats maintaining over 90% on room air. Afebrile. Lung sounds note crackles in the RLL. Labs today show normal WBC at 6.7. Blood cultures negative.
[2018-05-22 07:44] LABS: CHLORIDE,CL 109 mEq/L (98-106); SODIUM,NA 144 mEq/L (136-145)
[2018-05-22 08:10] VITALS: BP 130/85
[2018-05-22] MEDS: Albuterol/Ipratropium 3.0-0.5 MG/3 ML Neb Soln NEB SCH (08:33)
[2018-05-22] MEDS: Docusate Sodium 100 MG Cap PO SCH (08:33)
[2018-05-22] MEDS: QUEtiapine 25 MG Tab PO SCH (08:34)
[2018-05-22] MEDS: Cholecalciferol (Vitamin D3) 1,000 Unit Tab PO SCH (08:34)
[2018-05-22] MEDS: LORazepam 0.5 MG Tab PO SCH (08:34)
[2018-05-22] MEDS: Sertraline 100 MG Tab PO SCH (08:34)
[2018-05-22] MEDS: Carbidopa/Levodopa 25-250 MG Tab PO SCH (08:35)
[2018-05-22] MEDS: Polyethylene Glycol 3350 Powder 17 GM Packet PO SCH (08:35)
[2018-05-22] MEDS: Aspirin 81 MG Tab.EC PO SCH (08:35)
[2018-05-22] MEDS: RIVASTIGMINE 13.3 MG TOP SCH (08:45)
--- NOTE | 2018-05-22 21:19 | PCM.DCSUM1 ---
Discharge Summary - Hospital Course Free Text/Narrative:: 82 year old male presented to ER from [facility] with complaints of lethargy, fever. Not eating or drinking well. Patient does have history of Parkinson's and Alzheimers but family related he is normally more conversive. Has been sleeping more. Temp was high at 102.6. Has had nonproductive cough. Chest xray done in ER shows RLL pneumonia. WBC was normal but CRP elevated. Blood cultures ordered. Diagnosis: Stroke: No Modified [place] Scale: No Symptoms at All Modified [place] Scale Score: 0 - Discharge Data Discharge Date: 05/22/18 Discharge Disposition: Home, Self-Care 01 Condition: Fair - Discharge Diagnosis/Problem(s) (1) Palliative care status SNOMED Code(s): 844923363 ICD Code: Z51.5 - ENCOUNTER FOR PALLIATIVE CARE Status: Acute Priority: High (2) Pneumonia SNOMED Code(s): 491191038 ICD Code: J18.9 - PNEUMONIA, UNSPECIFIED ORGANISM Status: Acute Priority : High Qualifiers: Laterality: right Lung location: lower lobe of lung - Patient Summary/Data Complications: none Hospital Course: Patient status improved. More alert this am, eating well. Now afebrile. Lung sounds note improvement, crackles yet noted in RLL but improved air exchange. Sats in the 90s on room air. WBC remained normal, lower today at 4. CRP has improved from 14 to 7. Blood cultures are negative. Has been receiving IV Rocephin, Zithromax and nebs. Will discharge back to [facility] on Ceftin and nebs as needed. - Patient Instructions Diet: Usual Diet as Tolerated Activity: As Tolerated - Discharge Plan *PRESCRIPTION DRUG MONITORING PROGRAM REVIEWED*: Not Applicable *COPY OF PRESCRIPTION DRUG MONITORING REPORT IN PATIENT KATY: Not Applicable Prescriptions/Med Rec: Cefuroxime Axetil [Ceftin] 250 mg PO BID #20 tablet Home Medications: Home Meds Aspirin [Halfprin] 81 mg PO DAILY 05/30/15 [History] Carbidopa/Levodopa [Carbidopa-Levodopa 25-250] 1 each PO TID 05/30/15 [History] Cholecalciferol (Vitamin D3) [Vitamin D3] 2,000 unit PO DAILY 05/30/15 [History] Docusate Sodium 200 mg PO DAILY 05/30/15 [History] Magnesium 250 mg PO DAILY 05/30/15 [History] Polyethylene Glycol 3350 [Miralax] 17 gm PO DAILY 05/30/15 [History] Polyvinyl Alcohol [LiquiTears 1.4% Ophth Soln] 1 ml EYEBOTH Q1H PRN #1 bottle [Rx] Acetaminophen [Tylenol] 650 mg PO Q4H PRN 05/19/18 [History] LORazepam 0.25 mg PO BID 05/19/18 [History] Mag Hydrox/Aluminum Hyd/Simeth [Antacid Plus Anti-Gas Relf Liq] 30 ml PO QID PRN 05/19/18 [History] Magnesium Hydroxide [Milk of Magnesia] 30 ml PO DAILY PRN 05/19/18 [History] QUEtiapine [SEROquel] 12.5 mg PO DAILY 05/19/18 [History] QUEtiapine [SEROquel] 25 mg PO BEDTIME 05/19/18 [History] Rivastigmine 1 patch TOP DAILY 05/19/18 [History] Sertraline HCl 100 mg PO DAILY 05/19/18 [History] Cefuroxime Axetil [Ceftin] 250 mg PO BID #20 tablet 05/22/18 [Rx] Referrals: Alhaji Parra MD [Primary Care Provider] - - Discharge Summary/Plan Comment DC Time >30 min.: No - General Info Date of Service: 05/22/18 Admission Dx/Problem (Free Text: RLL pneumonia Functional Status: Reports: Pain Controlled, Tolerating Diet - Review of Systems General: Reports: Malaise. Denies: Fever, Weakness, Fatigue HEENT: Reports: Sinus Congestion, Rhinitis Pulmonary: Reports: Cough, Sputum. Denies: Shortness of Breath Cardiovascular: Denies: Chest Pain, Edema, Lightheadedness Gastrointestinal: Denies: Nausea, Vomiting Genitourinary: Reports: No Symptoms Musculoskeletal: Reports: No Symptoms Skin: Reports: No Symptoms Neurological: Reports: Confusion, Weakness - Patient Data Vitals - Most Recent: Last Vital Signs Temp 97.4 F 05/22/18 08:00 Pulse 94 05/22/18 08:00 Resp 18 05/22/18 08:00 BP 130/85 05/22/18 08:00 Pulse Ox 95 05/22/18 08:00 Weight - Most Recent: 159 lb 1.6 oz I&O - Last 24 hours: Intake & Output 05/22/18 05/22/18 05/22/18 06:59 14:59 22:59 Intake Total 100 Output Total 200 Balance -100 Lab Results - Last 24 hrs: Laboratory Results - last 24 hr 05/22/18 05/22/18 Range/Units 05:00 05:11 WBC 4.0 L (5.0-10.0) 10^3/uL RBC 3.54 L (4.50-6.00) 10^6/uL Hgb 10.9 L (14.0-18.0) g/dL Hct 32.9 L (40.0-54.0) % MCV 92.9 (82.0-94.0) fL MCH 30.8 (27.0-32.0) pg MCHC 33.1 (33.0-38.0) g/dL RDW Coeff of Ousmane 12.4 (11.0-15.0) % Plt Count 200 (150-400) 10^3/uL Neut % (Auto) 73.3 (35-85) % Lymph % (Auto) 13.1 (10-55) % Hunt % (Auto) 11.8 (0-16) % Eos % (Auto) 1.5 (0-5) % Baso % (Auto) 0.3 (0-3) % Neut # (Auto) 2.92 (1.80-7.00) 10^3/uL Lymph # (Auto) 0.52 L (1.00-4.80) 10^3/uL Hunt # (Auto) 0.47 (0.00-0.80) 10^3/uL Eos # (Auto) 0.06 (0.00-0.45) 10^3/uL Baso # (Auto) 0.01 10^3/uL Sodium 144 (136-145) mEq/L Potassium 3.8 (3.5-5.0) mEq/L Chloride 109 H (98-106) mEq/L Carbon Dioxide 27 (21-32) mmol/L BUN 15 (7-18) mg/dL Creatinine 0.8 (0.7-1.3) mg/dL Est Cr Clr Drug Dosing 64.26 mL/min Estimated GFR (MDRD) > 60 (>=60) mL/min Glucose 82 (75-99) mg/dL Calcium 8.4 (8.4-10.1) mg/dL C-Reactive Protein 7.4 H (0.2-0.8) mg/dL HUMBERTO Results - Last 24 hrs: Microbiology 05/19/18 15:45 Aerobic Blood Culture - Preliminary Blood NO GROWTH AFTER 3 DAYS Anaerobic Blood Culture - Preliminary NO GROWTH AFTER 3 DAYS 05/19/18 15:45 Aerobic Blood Culture - Preliminary Blood NO GROWTH AFTER 3 DAYS Anaerobic Blood Culture - Preliminary NO GROWTH AFTER 3 DAYS Med Orders - Current: Current Medications Discontinued Medications Acetaminophen (Tylenol) 650 mg PO Q4H PRN PRN Reason: Pain (Mild 1-3)/fever Last Admin: 05/21/18 19:43 Dose: 650 mg Acetaminophen (Tylenol) 650 mg PO Q4H PRN PRN Reason: Pain/Fever Al Hydroxide/Mg Hydroxide (Mag-Al Plus) 30 ml PO QID PRN PRN Reason: gastric distress Albuterol/Ipratropium (Duoneb 3.0-0.5 Mg/3 Ml) 3 ml NEB Q6H [facility] Last Admin: 05/19/18 19:34 Dose: 3 ml Albuterol/Ipratropium (Duoneb 3.0-0.5 Mg/3 Ml) 3 ml NEB QIDRT [facility] Last Admin: 05/22/18 08:33 Dose: 3 ml Albuterol/Ipratropium (Duoneb 3.0-0.5 Mg/3 Ml) 3 ml NEB Q4H PRN PRN Reason: Dyspnea Artificial Tears (Liquitears 1.4% Ophth Soln) 1 ml EYEBOTH Q1H PRN PRN Reason: Dry Eyes Aspirin (Halfprin) 81 mg PO DAILY [facility] Last Admin: 05/22/18 08:35 Dose: 81 mg Carbidopa/Levodopa (Sinemet 25-250 Mg) 1 tab PO TID [facility] Last Admin: 05/22/18 08:35 Dose: 1 tab Ceftriaxone Sodium (Rocephin) 2 gm IVPUSH ONETIME ONE Stop: 05/19/18 18:22 Last Admin: 05/19/18 19:32 Dose: 2 gm Ceftriaxone Sodium (Rocephin) 1 gm IVPUSH Q24H [facility] Ceftriaxone Sodium (Rocephin) 1 gm IVPUSH Q24H [facility] Last Admin: 05/20/18 18:31 Dose: Not Given Ceftriaxone Sodium (Rocephin) 1 gm IVPUSH 1600 [facility] Last Admin: 05/21/18 16:55 Dose: 1 gm Cholecalciferol (Vitamin D3) 2,000 units PO DAILY [facility] Last Admin: 05/22/18 08:34 Dose: 2,000 units Docusate Sodium (Colace) 200 mg PO DAILY [facility] Last Admin: 05/22/18 08:33 Dose: 200 mg Enoxaparin Sodium (Lovenox) 40 mg SUBCUT Q24H [facility] Last Admin: 05/21/18 19:41 Dose: 40 mg Azithromycin 500 mg/ Sodium (Chloride) 250 mls @ 250 mls/hr IV Q24H [facility] Last Admin: 05/20/18 18:31 Dose: Not Given Sodium Chloride (Normal Saline) 1,000 mls @ 100 mls/hr IV ASDIRECTED [facility] Last Admin: 05/21/18 06:07 Dose: 125 mls/hr Azithromycin 500 mg/ Sodium (Chloride) 250 mls @ 250 mls/hr IV 1600 [facility] Last Admin: 05/21/18 15:46 Dose: 250 mls/hr Ibuprofen (Motrin) 600 mg PO ONETIME ONE Stop: 05/19/18 17:23 Last Admin: 05/19/18 17:26 Dose: 600 mg Ibuprofen (Motrin) Confirm Administered Dose 200 mg .ROUTE .STK-MED ONE Stop: 05/19/18 17:21 Last Admin: 05/19/18 18:04 Dose: Not Given Lorazepam (Ativan) 0.25 mg PO BID [facility] Last Admin: 05/22/18 08:34 Dose: 0.25 mg Magnesium Hydroxide (Milk Of Magnesia) 30 ml PO DAILY PRN PRN Reason: Constipation Magnesium Oxide (Magnesium Oxide) 250 mg PO DAILY [facility] Last Admin: 05/22/18 08:34 Dose: 250 mg Non-Formulary Medication (Cholecalciferol (Vitamin D3)) 2,000 unit PO DAILY [facility] Last Admin: 05/20/18 10:16 Dose: Not Given Non-Formulary Medication (Magnesium [Magnesium]) 250 mg PO DAILY [facility] Last Admin: 05/20/18 10:16 Dose: Not Given Rivastigmine 13.3mg (Patch Own Med ) 1 patch TOP DAILY [facility] Last Admin: 05/22/18 08:45 Dose: 1 patch Polyethylene Glycol (Miralax) 17 gm PO DAILY [facility] Last Admin: 05/22/18 08:35 Dose: 17 gm Quetiapine Fumarate (Seroquel) 12.5 mg PO DAILY [facility] Last Admin: 05/22/18 08:34 Dose: 12.5 mg Quetiapine Fumarate (Seroquel) 25 mg PO BEDTIME [facility] Last Admin: 05/21/18 19:41 Dose: 25 mg Sertraline HCl (Zoloft) 100 mg PO DAILY [facility] Last Admin: 05/22/18 08:34 Dose: 100 mg Sodium Chloride (Saline Flush) 10 ml FLUSH ASDIRECTED PRN PRN Reason: Keep Vein Open - Exam General: Reports: Alert, Oriented (oriented to person only), Cooperative HEENT: Reports: Mucous Membr. Moist/[place] Neck: Reports: Supple Lungs: Reports: Normal Respiratory Effort, Crackles Cardiovascular: Reports: Regular Rate, Regular Rhythm GI/Abdominal Exam: Normal Bowel Sounds, Soft, Non-Tender Extremities: Normal Inspection, No Pedal Edema Skin: Reports: Warm, Dry Neurological: Reports: No New Focal Deficit
== END 2018-05-22 11:42 | disposition home or self-care (01) | DRG 194 ==
LOC: CC.ED 17:10 → CC.MS 18:08 → UNDOADMOB 18:41 → OBSVTOIN 18:42 → INTOOBSV 18:42
PROVIDERS: ADMIT Nurse Practitioner; ATTEND Family Medicine
DX: J18.9 Pneumonia, unspecified organism (principal); J18.1 Lobar pneumonia, unspecified organism; E27.1 Primary adrenocortical insufficiency; K59.09 Other constipation; E78.00 Pure hypercholesterolemia, unspecified; I10 Essential (primary) hypertension; K58.9 Irritable bowel syndrome, unspecified; K58.1 Irritable bowel syndrome with constipation; K29.70 Gastritis, unspecified, without bleeding; K57.90 Diverticulosis of intestine, part unspecified, without perforation or abscess without bleeding; G89.29 Other chronic pain; R10.9 Unspecified abdominal pain; M19.90 Unspecified osteoarthritis, unspecified site; G20 Parkinson's disease; F41.9 Anxiety disorder, unspecified; R35.1 Nocturia; Z85.46 Personal history of malignant neoplasm of prostate; Z86.73 Personal history of transient ischemic attack (TIA), and cerebral infarction without residual deficits; R50.9 Fever, unspecified; R05 Cough; E53.8 Deficiency of other specified B group vitamins; R53.83 Other fatigue; Z79.82 Long term (current) use of aspirin; Z79.899 Other long term (current) drug therapy; G30.9 Alzheimer's disease, unspecified; F02.80 Dementia in other diseases classified elsewhere, unspecified severity, without behavioral disturbance, psychotic disturbance, mood disturbance, and anxiety; Z51.5 Encounter for palliative care
CPT/HCPCS: 36415; 71045; 80048; 80053; 81001; 83605; 85025; 86140; 87040; 87804; 94640; 99285; A9270-GY; J0456; J0696; J1650; J7030; J7050; J7620-GY

== ENCOUNTER 2019-05-26 07:41 | Inpatient (IN) | payer MEDICARE, OTHER ==
--- NOTE | 2019-05-26 07:42 | EDM.PDOC ---
ED HPI GENERAL MEDICAL PROBLEM - General Chief Complaint: Fever Stated Complaint: fever Time Seen by Provider: 05/26/19 07:42 Source of Information: Reports: Patient, Half-Way Records History Limitations: Reports: Other (dementia) - History of Present Illness INITIAL COMMENTS - FREE TEXT/NARRATIVE: in from the snf with fever and tachypnea x today, the pt has dementia and is not able to answer a lot of questions, the patient denies any complaints at this time. However with his dementia it is unclear the accuracy of his responses. Onset: Today Duration: Hour(s): Severity: Mild Improves with: Reports: None Worsens with: Reports: None Treatments LACTATION NURSE: Reports: Other (see below) (none) - Related Data Allergies Allergy/AdvReac Type Severity Reaction Status Date / Time No Known Allergies Allergy Verified 05/26/19 08:46 Home Meds: Home Meds Aspirin [Halfprin] 81 mg PO DAILY 05/30/15 [History] Carbidopa/Levodopa [Carbidopa-Levodopa 25-250] 1 each PO TID 05/30/15 [History] Docusate Sodium 200 mg PO DAILY 05/30/15 [History] Magnesium 250 mg PO DAILY 05/30/15 [History] Polyethylene Glycol 3350 [Miralax] 17 gm PO DAILY 05/30/15 [History] Acetaminophen [Tylenol] 650 mg PO Q6HR PRN 05/19/18 [History] LORazepam 0.25 mg PO DAILY 05/19/18 [History] Mag Hydrox/Aluminum Hyd/Simeth [Antacid Plus Anti-Gas Relf Liq] 30 ml PO QID PRN 05/19/18 [History] QUEtiapine [SEROquel] 25 mg PO BEDTIME 05/19/18 [History] Rivastigmine 1 patch TOP BEDTIME 05/19/18 [History] Sertraline HCl 100 mg PO DAILY 05/19/18 [History] Carboxymethylcellulose Sodium [Refresh Tears 0.5%] 1 drop EYEBOTH TID 05/26/19 [ History] Potassium Chloride [Klor-Con 10] 10 meq PO DAILY 05/26/19 [History] hydroCHLOROthiazide [Hydrochlorothiazide] 25 mg PO DAILY 05/26/19 [History] Past Medical History HEENT History: Reports: Allergic Rhinitis Cardiovascular History: Reports: High Cholesterol, Hypertension Respiratory History: Reports: SOB Gastrointestinal History: Reports: Chronic Constipation, Diverticulosis, Gastritis, Irritable Bowel Syndrome, Other (See Below) Other Gastrointestinal History: chronic abdmonial pain Genitourinary History: Reports: Prostate Disorder, Other (See Below) Other Genitourinary History: nocturia Musculoskeletal History: Reports: Arthritis, Osteoarthritis Neurological History: Reports: Parkinson's, TIA Psychiatric History: Reports: Anxiety 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 Hematologic History: Reports: B12 Deficiency, Other (See Below) Other Hematologic History: vitamin D deficiency Oncologic (Cancer) History: Reports: Prostate - Past Surgical History Musculoskeletal Surgical History: Reports: Shoulder Surgery, Other (See Below) Social & Family History - Family History Family Medical History: Noncontributory - Caffeine Use Caffeine Use: Reports: Coffee - Living Situation & Occupation Living situation: Reports: , with Family Occupation: Retired ED ROS GENERAL - Review of Systems Review Of Systems: See Below Constitutional: Reports: Fever, Chills HEENT: Reports: No Symptoms Respiratory: Reports: Shortness of Breath, Cough Cardiovascular: Reports: No Symptoms Endocrine: Reports: No Symptoms GI/Abdominal: Reports: No Symptoms. Denies: Abdominal Pain, Constipation, Diarrhea, Distension, Vomiting : Reports: No Symptoms, Incontinence (chronic) Musculoskeletal: Reports: No Symptoms Skin: Reports: No Symptoms. Denies: Bruising, Rash, Erythema Neurological: Reports: No Symptoms Psychiatric: Reports: No Symptoms ED EXAM, GENERAL - Physical Exam Exam: See Below Exam Limited By: Other (dementia) General Appearance: Alert, WD/WN, No Apparent Distress Ears: Normal External Exam Nose: Normal Inspection Throat/Mouth: Normal Inspection, Normal Voice, No Airway Compromise Head: Atraumatic, Normocephalic Neck: Normal Inspection, Supple, Non-Tender, Full Range of Motion Respiratory/Chest: No Respiratory Distress, Lungs Clear, Normal Breath Sounds, No Accessory Muscle Use, Chest Non-Tender, Other (is decreased some in the bases ) Cardiovascular: Normal Peripheral Pulses, Regular Rate, Rhythm, Systolic Murmur Peripheral Pulses: 2+: Radial (L), Radial (R) GI/Abdominal: Normal Bowel Sounds, Soft, Non-Tender Back Exam: Normal Inspection, Full Range of Motion Extremities: Normal Inspection, Normal Range of Motion, Non-Tender, No Pedal Edema, Normal Capillary Refill Neurological: Alert, No Motor/Sensory Deficits, Other (transfer from to bed with help) Psychiatric: Normal Affect, Normal Mood Skin Exam: Warm, Dry, Intact, Normal Color, No Rash EKG INTERPRETATION EKG Date: 05/26/19 Time: 08:12 Rhythm: A-Fib [place]: Normal QRS: Normal ST-T: Normal QT: Normal EKG Interpretation Comments: Afib with CVR, no injury or ischemia noted Course - Vital Signs Text/Narrative:: 08 the patient is being evaluated in the emergency department the patient had a fever 102 at the snf as well as elevated respiratory rate. The patient has a white count of 12,000 with a left shift, the chest x-ray shows a large right lower lobe pneumonia. The patient has had appropriate blood work as well as blood cultures obtained. The patient is also going to have a straight cath urinalysis, the patient has an IV of normal saline at 75 mL an hour he will also have Rocephin 2 g IV now as well as Zithromax 500 mg now and then he will have Rocephin 1 g IV every 24 hours with Zithromax 500 mg IV every 24 hours. The patient's oxygen saturation is 95% on room air and he will remain on room air at this point. The patient was given Tylenol 650 for his fever. The patient will be admitted to the hospital. the pt also has a UTI, the Rocephin should cover this as well as the pneumonia Last Recorded V/S: Last Vital Signs Temp 37.7 C 05/26/19 07:41 Pulse 92 05/26/19 07:41 Resp 18 05/26/19 07:41 BP 109/69 05/26/19 07:41 Pulse Ox 95 05/26/19 07:41 - Orders/Labs/Meds Orders: Active Orders 24 hr Category Date Time Status Patient Status Manage Transfer [TRANSFER] Routine ADT 05/26/19 08:39 Active Patient Status [ADT] Routine ADT 05/26/19 08:41 Active Cardiac Monitoring [RC] CONTINUOUS Care 05/26/19 08:43 Active Height and Weight [RC] UPON Care 05/26/19 08:41 Active Intake and Output [RC] QSHIFT Care 05/26/19 08:43 Active Oxygen Therapy [RC] PRN Care 05/26/19 08:41 Active RT Aerosol Therapy [RC] ASDIRECTED Care 05/26/19 08:18 Active RT Aerosol Therapy [RC] ASDIRECTED Care 05/26/19 08:44 Active Up With Assistance [RC] ASDIRECTED Care 05/26/19 08:41 Active VTE/DVT Education [RC] PER UNIT ROUTINE Care 05/26/19 08:41 Active Vital Signs [RC] Q4H Care 05/26/19 08:41 Active 2 Gram Sodium Diet [DIET] Diet 05/26/19 Breakfast Active Chest 1V Frontal [CR] Stat Exams 05/26/19 08:03 Taken BASIC METABOLIC PANEL,BMP [CHEM] AM Lab 05/27/19 05:11 Ordered C-REACTIVE PROTEIN [CHEM] AM Lab 05/27/19 05:11 Ordered CBC WITH AUTO DIFF [HEME] AM Lab 05/27/19 05:11 Ordered CULTURE BLOOD [BC] Stat Lab 05/26/19 07:53 Received CULTURE BLOOD [BC] Stat Lab 05/26/19 07:55 Received CULTURE URINE [RM] Stat Lab 05/26/19 08:45 Received Acetaminophen [Tylenol] Med 05/26/19 08:41 Active 650 mg PO Q4H PRN Albuterol [Proventil Neb Soln] Med 05/26/19 12:00 Active 2.5 mg NEB QID Enoxaparin [Lovenox] Med 05/26/19 08:45 Active 40 mg SUBCUT Q24H Ibuprofen [Motrin] Med 05/26/19 08:41 Active 600 mg PO Q6H PRN Sodium Chloride 0.9% [Normal Saline] 1,000 ml Med 05/26/19 07:45 Active IV ASDIRECTED Sodium Chloride 0.9% [Normal Saline] 1,000 ml Med 05/26/19 08:45 Active IV ASDIRECTED Blood Culture x2 Reflex Set [OM.PC] Stat Oth 05/26/19 07:53 Ordered Resuscitation Status Routine Resus Stat 05/26/19 08:41 Ordered Medication Orders Acetaminophen (Tylenol) 650 mg PO Q4H PRN PRN Reason: Pain (Mild 1-3)/fever Albuterol (Proventil Neb Soln) 2.5 mg NEB QID AZIZA Ceftriaxone Sodium (Rocephin) 1 gm IVPUSH Q24H AZIZA Enoxaparin Sodium (Lovenox) 40 mg SUBCUT Q24H AZIZA Sodium Chloride (Normal Saline) 1,000 mls @ 75 mls/hr IV ASDIRECTED AZIZA Last Admin: 05/26/19 07:58 Dose: 75 mls/hr Azithromycin 500 mg/ Sodium (Chloride) 250 mls @ 250 mls/hr IV Q24H AZIZA Sodium Chloride (Normal Saline) 1,000 mls @ 80 mls/hr IV ASDIRECTED AZIZA Ibuprofen (Motrin) 600 mg PO Q6H PRN PRN Reason: Pain (mild 1-3) Labs: Laboratory Tests 05/26/19 05/26/19 05/26/19 Range/Units 07:42 07:50 07:50 WBC 12.2 H (5.0-10.0) 10^3/uL RBC 3.97 L (4.50-6.00) 10^6/uL Hgb 12.3 L (14.0-18.0) g/dL Hct 36.3 L (40.0-54.0) % MCV 91.4 (82.0-94.0) fL MCH 31.0 (27.0-32.0) pg MCHC 33.9 (33.0-38.0) g/dL RDW Coeff of Ousmane 12.4 (11.0-15.0) % Plt Count 220 (150-400) 10^3/uL Neut % (Auto) 88.1 H (35-85) % Lymph % (Auto) 3.0 L (10-55) % [place] % (Auto) 8.7 (0-16) % Eos % (Auto) 0.1 (0-5) % Baso % (Auto) 0.1 (0-3) % Neut # (Auto) 10.71 H (1.80-7.00) 10^3/uL Lymph # (Auto) 0.36 L (1.00-4.80) 10^3/uL [place] # (Auto) 1.06 H (0.00-0.80) 10^3/uL Eos # (Auto) 0.01 (0.00-0.45) 10^3/uL Baso # (Auto) 0.01 10^3/uL Sodium 139 (136-145) mEq/L Potassium 3.6 (3.5-5.0) mEq/L Chloride 102 (98-106) mEq/L Carbon Dioxide 29 (21-32) mmol/L BUN 28 H (7-18) mg/dL Creatinine 1.1 (0.7-1.3) mg/dL Est Cr Clr Drug Dosing 45.90 mL/min Estimated GFR (MDRD) > 60 (>=60) mL/min Glucose 99 (75-99) mg/dL Lactic Acid (0.4-2.0) mmol/L Calcium 8.3 L (8.4-10.1) mg/dL Magnesium 1.9 (1.8-2.4) mg/dL Total Bilirubin 1.2 H (0.0-1.0) mg/dL AST 30 (15-37) U/L ALT 28 (12-78) U/L Alkaline Phosphatase 79 (46-116) U/L C-Reactive Protein 18.8 H (0.2-0.8) mg/dL Total Protein 6.7 (6.4-8.2) g/dL Albumin 2.9 L (3.4-5.0) g/dL Urine Color Dark yellow (YELLOW) Urine Appearance Clear (CLEAR) Urine pH 5.0 (4.5-8.0) Ur Specific [place] 1.025 H (1.003-1.020) Urine Protein 30 H (NEGATIVE) mg/dL Urine Glucose (UA) Negative (NEGATIVE) mg/dL Urine Ketones Trace H (NEGATIVE) mg/dL Urine Occult Blood Moderate H (NEGATIVE) Urine Nitrite Positive H (NEGATIVE) Urine Bilirubin Small H (NEGATIVE) Urine Urobilinogen 0.2 (0.2-1.0) EU/dL Ur Leukocyte Esterase Trace H (NEGATIVE) Urine RBC 20-30 H (0-5) /HPF Urine WBC 10-20 H (0-5) /HPF Urine WBC Clumps Occasional H (NOT SEEN) /HPF Ur Epithelial Cells Occasional H (NOT SEEN) /HPF Urine Bacteria Many H (NOT SEEN) /HPF 05/26/19 Range/Units 07:50 WBC (5.0-10.0) 10^3/uL RBC (4.50-6.00) 10^6/uL Hgb (14.0-18.0) g/dL Hct (40.0-54.0) % MCV (82.0-94.0) fL MCH (27.0-32.0) pg MCHC (33.0-38.0) g/dL RDW Coeff of Ousmane (11.0-15.0) % Plt Count (150-400) 10^3/uL Neut % (Auto) (35-85) % Lymph % (Auto) (10-55) % [place] % (Auto) (0-16) % Eos % (Auto) (0-5) % Baso % (Auto) (0-3) % Neut # (Auto) (1.80-7.00) 10^3/uL Lymph # (Auto) (1.00-4.80) 10^3/uL [place] # (Auto) (0.00-0.80) 10^3/uL Eos # (Auto) (0.00-0.45) 10^3/uL Baso # (Auto) 10^3/uL Sodium (136-145) mEq/L Potassium (3.5-5.0) mEq/L Chloride (98-106) mEq/L Carbon Dioxide (21-32) mmol/L BUN (7-18) mg/dL Creatinine (0.7-1.3) mg/dL Est Cr Clr Drug Dosing mL/min Estimated GFR (MDRD) (>=60) mL/min Glucose (75-99) mg/dL Lactic Acid 1.0 (0.4-2.0) mmol/L Calcium (8.4-10.1) mg/dL Magnesium (1.8-2.4) mg/dL Total Bilirubin (0.0-1.0) mg/dL AST (15-37) U/L ALT (12-78) U/L Alkaline Phosphatase (46-116) U/L C-Reactive Protein (0.2-0.8) mg/dL Total Protein (6.4-8.2) g/dL Albumin (3.4-5.0) g/dL Urine Color (YELLOW) Urine Appearance (CLEAR) Urine pH (4.5-8.0) Ur Specific [place] (1.003-1.020) Urine Protein (NEGATIVE) mg/dL Urine Glucose (UA) (NEGATIVE) mg/dL Urine Ketones (NEGATIVE) mg/dL Urine Occult Blood (NEGATIVE) Urine Nitrite (NEGATIVE) Urine Bilirubin (NEGATIVE) Urine Urobilinogen (0.2-1.0) EU/dL Ur Leukocyte Esterase (NEGATIVE) Urine RBC (0-5) /HPF Urine WBC (0-5) /HPF Urine WBC Clumps (NOT SEEN) /HPF Ur Epithelial Cells (NOT SEEN) /HPF Urine Bacteria (NOT SEEN) /HPF Meds: Medications Generic Name Dose Route Start Last Admin Trade Name Freq PRN Reason Stop Dose Admin Acetaminophen 650 mg 05/26/19 08:41 Tylenol PO Q4H PRN Pain (Mild 1-3)/fever Albuterol 2.5 mg 05/26/19 12:00 Proventil Neb Soln NEB QID AZIZA Ceftriaxone Sodium 1 gm 05/27/19 08:00 Rocephin IVPUSH Q24H AZIZA Enoxaparin Sodium 40 mg 05/26/19 08:45 Lovenox SUBCUT Q24H AZIZA Sodium Chloride 1,000 mls @ 75 mls/hr 05/26/19 07:45 05/26/19 07:58 Normal Saline IV 75 mls/hr ASDIRECTED AZIZA Administration Azithromycin 500 mg/ Sodium 250 mls @ 250 mls/hr 05/27/19 08:00 Chloride IV Q24H AZIZA Sodium Chloride 1,000 mls @ 80 mls/hr 05/26/19 08:45 Normal Saline IV ASDIRECTED AZIZA Ibuprofen 600 mg 05/26/19 08:41 Motrin PO Q6H PRN Pain (mild 1-3) Discontinued Medications Generic Name Dose Route Start Last Admin Trade Name Freq PRN Reason Stop Dose Admin Acetaminophen 650 mg 05/26/19 08:02 05/26/19 08:23 Tylenol PO 05/26/19 08:03 650 mg NOW ONE Administration Albuterol/Ipratropium 3 ml 05/26/19 08:18 05/26/19 08:38 Duoneb 3.0-0.5 Mg/3 Ml NEB 05/26/19 08:19 3 ml ONETIME ONE Administration Departure - Departure Time of Disposition: 08:16 Disposition: Admitted As Inpatient 64 Condition: Good Clinical Impression: UTI (urinary tract infection) Fever Qualifiers: Fever type: unspecified Qualified Code(s): R50.9 - Fever, unspecified Right lower lobe pneumonia Qualifiers: Aspiration pneumonia type: unspecified - Discharge Information *PRESCRIPTION DRUG MONITORING PROGRAM REVIEWED*: Not Applicable *COPY OF PRESCRIPTION DRUG MONITORING REPORT IN PATIENT KATY: Not Applicable Sepsis Event Note - Focused Exam Vital Signs: Vital Signs Temp Pulse Resp BP Pulse Ox 05/26/19 07:41 37.7 C 92 18 109/69 95 Date Exam was Performed: 05/26/19 Time Exam was Performed: 09:02 - Problem List & Annotations (1) Fever SNOMED Code(s): 045284008 Code(s): R50.9 - FEVER, UNSPECIFIED Status: Acute Priority: High Current Visit: No Qualifiers: Fever type: unspecified Qualified Code(s): R50.9 - Fever, unspecified (2) Right lower lobe pneumonia SNOMED Code(s): 643317222 Code(s): J18.9 - PNEUMONIA, UNSPECIFIED ORGANISM Status: Acute Priority: High Current Visit: No Qualifiers: Aspiration pneumonia type: unspecified (3) UTI (urinary tract infection) SNOMED Code(s): 67172278 Code(s): N39.0 - URINARY TRACT INFECTION, SITE NOT SPECIFIED Status: Acute Priority: High Current Visit: Yes Qualifiers: Indwelling urinary catheter type: unspecified Encounter type: initial encounter - Problem List Review Problem List Initiated/Reviewed/Updated: Yes - My Orders Last 24 Hours: My Active Orders 05/26/19 07:45 Sodium Chloride 0.9% [Normal Saline] 1,000 ml IV ASDIRECTED 05/26/19 07:53 CULTURE BLOOD [BC] Stat Blood Culture x2 Reflex Set [OM.PC] Stat 05/26/19 07:55 CULTURE BLOOD [BC] Stat 05/26/19 08:03 Chest 1V Frontal [CR] Stat 05/26/19 08:18 RT Aerosol Therapy [RC] ASDIRECTED 05/26/19 08:39 Patient Status Manage Transfer [TRANSFER] Routine 05/26/19 08:41 Patient Status [ADT] Routine Height and Weight [RC] UPON Oxygen Therapy [RC] PRN Up With Assistance [RC] ASDIRECTED VTE/DVT Education [RC] PER UNIT ROUTINE Vital Signs [RC] Q4H Acetaminophen [Tylenol] 650 mg PO Q4H PRN Ibuprofen [Motrin] 600 mg PO Q6H PRN Resuscitation Status Routine 05/26/19 08:43 Cardiac Monitoring [RC] CONTINUOUS Intake and Output [RC] QSHIFT 05/26/19 08:44 RT Aerosol Therapy [RC] ASDIRECTED 05/26/19 08:45 CULTURE URINE [RM] Stat Enoxaparin [Lovenox] 40 mg SUBCUT Q24H Sodium Chloride 0.9% [Normal Saline] 1,000 ml IV ASDIRECTED 05/26/19 12:00 Albuterol [Proventil Neb Soln] 2.5 mg NEB QID 05/26/19 Breakfast 2 Gram Sodium Diet [DIET] 05/27/19 05:11 BASIC METABOLIC PANEL,BMP [CHEM] AM C-REACTIVE PROTEIN [CHEM] AM CBC WITH AUTO DIFF [HEME] AM - Assessment/Plan Admission H&P: Please use this note as an admission H&P Last 24 Hours: My Active Orders 05/26/19 07:45 Sodium Chloride 0.9% [Normal Saline] 1,000 ml IV ASDIRECTED 05/26/19 07:53 CULTURE BLOOD [BC] Stat Blood Culture x2 Reflex Set [OM.PC] Stat 05/26/19 07:55 CULTURE BLOOD [BC] Stat 05/26/19 08:03 Chest 1V Frontal [CR] Stat 05/26/19 08:18 RT Aerosol Therapy [RC] ASDIRECTED 05/26/19 08:39 Patient Status Manage Transfer [TRANSFER] Routine 05/26/19 08:41 Patient Status [ADT] Routine Height and Weight [RC] UPON Oxygen Therapy [RC] PRN Up With Assistance [RC] ASDIRECTED VTE/DVT Education [RC] PER UNIT ROUTINE Vital Signs [RC] Q4H Acetaminophen [Tylenol] 650 mg PO Q4H PRN Ibuprofen [Motrin] 600 mg PO Q6H PRN Resuscitation Status Routine 05/26/19 08:43 Cardiac Monitoring [RC] CONTINUOUS Intake and Output [RC] QSHIFT 05/26/19 08:44 RT Aerosol Therapy [RC] ASDIRECTED 05/26/19 08:45 CULTURE URINE [RM] Stat Enoxaparin [Lovenox] 40 mg SUBCUT Q24H Sodium Chloride 0.9% [Normal Saline] 1,000 ml IV ASDIRECTED 05/26/19 12:00 Albuterol [Proventil Neb Soln] 2.5 mg NEB QID 05/26/19 Breakfast 2 Gram Sodium Diet [DIET] 05/27/19 05:11 BASIC METABOLIC PANEL,BMP [CHEM] AM C-REACTIVE PROTEIN [CHEM] AM CBC WITH AUTO DIFF [HEME] AM Plan: The patient will be admitted to inpatient, the patient will have Rocephin 1 g IV every 24 hours as well as Zithromax 500 mg IV every 24 hours the patient will have hand-held nebulizer the DuoNeb every 6 hours the patient will be on IV a normal saline at 75 mL an hour. The patient will have blood work drawn in the morning. Changes to the treatment plan will be based on further assessment and data collected.
[2019-05-26] MEDS ORDERED: Sodium Chloride 0.9% 1,000 ML IV SCH (07:45)
[2019-05-26] MEDS ORDERED: Acetaminophen 325 MG Tab PO ONE (08:02)
[2019-05-26] MEDS ORDERED: Albuterol/Ipratropium 3.0-0.5 MG/3 ML Neb Soln NEB ONE (08:18)
[2019-05-26 08:22] LABS: CHLORIDE,CL 102 mEq/L (98-106); SODIUM,NA 139 mEq/L (136-145)
[2019-05-26] MEDS ORDERED: Ibuprofen 200 MG Tab PO PRN (08:41)
[2019-05-26] MEDS ORDERED: Acetaminophen 325 MG Tab PO PRN ×2 (08:41→09:04)
[2019-05-26] MEDS ORDERED: Aluminum Hydroxide/Magnesium Hydroxide/Simethicone Susp 30 ML Cup PO PRN (09:04)
[2019-05-26] MEDS ORDERED: Take Home: LORazepam 0.5 MG Tab, 2 Tab Pack PO SCH (09:15)
[2019-05-26] MEDS ORDERED: Azithromycin 500 MG Vial ONE (09:31)
[2019-05-26] MEDS ORDERED: cefTRIAXone 1 GM Vial ONE (09:32)
[2019-05-26] MEDS: Sodium Chloride 0.9% 1,000 ML IV SCH ×2 (09:33→20:18)
[2019-05-26] MEDS ORDERED: Sodium Chloride 0.9% 250 ML ONE (09:34)
[2019-05-26] MEDS: cefTRIAXone 1 GM Vial IVPUSH SCH (09:34)
[2019-05-26] MEDS: Azithromycin 500 MG in Sodium Chloride 0.9% 250 ML IV SCH (09:36)
[2019-05-26] MEDS: Enoxaparin 40 MG/0.4 ML Syringe SUBCUT SCH (09:43)
[2019-05-26] MEDS: Polyethylene Glycol 3350 Powder 17 GM Packet PO SCH ×2 (09:43→09:45)
[2019-05-26] MEDS: Sertraline 100 MG Tab PO SCH ×2 (09:45)
[2019-05-26] MEDS: Potassium Chloride 10 MEQ Tab.ER PO SCH ×2 (09:45)
[2019-05-26] MEDS: Non-Formulary Medication 1 Each (Magnesium [Magnesium] 250 MG) PO SCH ×2 (09:45→09:49)
[2019-05-26] MEDS: Hydrochlorothiazide 25 MG Tab PO SCH ×2 (09:45)
[2019-05-26] MEDS: Albuterol 0.083% 2.5 MG/3 ML Neb Soln NEB SCH ×3 (11:32→20:04)
[2019-05-26] MEDS: Carbidopa/Levodopa 25-250 MG Tab PO SCH ×2 (14:26→20:04)
[2019-05-26] MEDS: LORazepam 0.5 MG Tab PO SCH (14:26)
[2019-05-26] MEDS: Non-Formulary Medication 1 Each (Carboxymethylcellulose Sodium [Refresh Tears 0.5%] 1 DROP EYEBOTH SCH ×2 (14:27→20:04)
[2019-05-26] MEDS: QUEtiapine 25 MG Tab PO SCH (20:04)
[2019-05-27 07:33] LABS: CHLORIDE,CL 104 mEq/L (98-106); SODIUM,NA 141 mEq/L (136-145)
[2019-05-27] MEDS: Hydrochlorothiazide 25 MG Tab PO SCH (07:42)
[2019-05-27] MEDS: Aspirin 81 MG Tab.EC PO SCH (07:42)
[2019-05-27] MEDS: Carbidopa/Levodopa 25-250 MG Tab PO SCH ×3 (07:42→19:41)
[2019-05-27] MEDS: Sertraline 100 MG Tab PO SCH (07:42)
[2019-05-27] MEDS: Potassium Chloride 10 MEQ Tab.ER PO SCH (07:43)
[2019-05-27] MEDS: Polyethylene Glycol 3350 Powder 17 GM Packet PO SCH (07:43)
[2019-05-27] MEDS: Docusate Sodium 100 MG Cap PO SCH (07:43)
[2019-05-27] MEDS: Albuterol 0.083% 2.5 MG/3 ML Neb Soln NEB SCH ×4 (07:43→19:37)
[2019-05-27] MEDS: cefTRIAXone 1 GM Vial IVPUSH SCH (07:44)
[2019-05-27] MEDS: Azithromycin 500 MG in Sodium Chloride 0.9% 250 ML IV SCH (07:47)
--- NOTE | 2019-05-27 09:53 | PCM.PN ---
- General Info Date of Service: 05/27/19 Admission Dx/Problem (Free Text): RLL Pneumonia UTI Functional Status: Reports: Pain Controlled, Tolerating Diet. Denies: Ambulating - Review of Systems General: Reports: Weakness, Fatigue, Malaise HEENT: Reports: No Symptoms Pulmonary: Reports: Cough. Denies: Shortness of Breath Cardiovascular: Reports: No Symptoms Gastrointestinal: Reports: No Symptoms Genitourinary: Reports: No Symptoms Musculoskeletal: Reports: No Symptoms Neurological: Reports: Weakness - Patient Data Vitals - Most Recent: Last Vital Signs Temp 98.5 F 05/27/19 02:57 Pulse 83 05/27/19 02:57 Resp 20 05/27/19 02:57 BP 125/73 05/27/19 02:57 Pulse Ox 97 05/27/19 02:57 Weight - Most Recent: 149 lb 12.8 oz I&O - Last 24 Hours: Intake & Output 05/26/19 05/27/19 05/27/19 22:59 06:59 14:59 Intake Total 860 Balance 860 Lab Results Last 24 Hours: Laboratory Results - last 24 hr 05/26/19 05/27/19 05/27/19 Range/Units 07:42 07:05 07:05 WBC 9.8 (5.0-10.0) 10^3/uL RBC 3.90 L (4.50-6.00) 10^6/uL Hgb 11.7 L (14.0-18.0) g/dL Hct 36.2 L (40.0-54.0) % MCV 92.8 (82.0-94.0) fL MCH 30.0 (27.0-32.0) pg MCHC 32.3 L (33.0-38.0) g/dL RDW Coeff of Ousmane 12.5 (11.0-15.0) % Plt Count 211 (150-400) 10^3/uL Neut % (Auto) 83.3 (35-85) % Lymph % (Auto) 6.4 L (10-55) % [place] % (Auto) 9.6 (0-16) % Eos % (Auto) 0.5 (0-5) % Baso % (Auto) 0.2 (0-3) % Neut # (Auto) 8.14 H (1.80-7.00) 10^3/uL Lymph # (Auto) 0.63 L (1.00-4.80) 10^3/uL [place] # (Auto) 0.94 H (0.00-0.80) 10^3/uL Eos # (Auto) 0.05 (0.00-0.45) 10^3/uL Baso # (Auto) 0.02 10^3/uL Sodium 141 (136-145) mEq/L Potassium 3.5 (3.5-5.0) mEq/L Chloride 104 (98-106) mEq/L Carbon Dioxide 32 (21-32) mmol/L BUN 22 H (7-18) mg/dL Creatinine 0.9 (0.7-1.3) mg/dL Est Cr Clr Drug Dosing 56.10 mL/min Estimated GFR (MDRD) > 60 (>=60) mL/min Glucose 92 (75-99) mg/dL Calcium 7.9 L (8.4-10.1) mg/dL C-Reactive Protein 20.2 H (0.2-0.8) mg/dL Urine Color Dark yellow (YELLOW) Urine Appearance Clear (CLEAR) Urine pH 5.0 (4.5-8.0) Ur Specific [place] 1.025 H (1.003-1.020) Urine Protein 30 H (NEGATIVE) mg/dL Urine Glucose (UA) Negative (NEGATIVE) mg/dL Urine Ketones Trace H (NEGATIVE) mg/dL Urine Occult Blood Moderate H (NEGATIVE) Urine Nitrite Positive H (NEGATIVE) Urine Bilirubin Small H (NEGATIVE) Urine Urobilinogen 0.2 (0.2-1.0) EU/dL Ur Leukocyte Esterase Trace H (NEGATIVE) Urine RBC 20-30 H (0-5) /HPF Urine WBC 10-20 H (0-5) /HPF Urine WBC Clumps Occasional H (NOT SEEN) /HPF Ur Epithelial Cells Occasional H (NOT SEEN) /HPF Urine Bacteria Many H (NOT SEEN) /HPF Herb Results Last 24 Hours: Microbiology 05/26/19 08:45 Urine Culture - Preliminary Urine, Catheterized Gram Negative Rods 05/26/19 08:00 Aerobic Blood Culture - Preliminary Blood - Venous - Lab Draw NO GROWTH AFTER 1 DAY Anaerobic Blood Culture - Preliminary NO GROWTH AFTER 1 DAY 05/26/19 07:55 Aerobic Blood Culture - Preliminary Blood - Venous NO GROWTH AFTER 1 DAY Anaerobic Blood Culture - Preliminary NO GROWTH AFTER 1 DAY 05/26/19 07:50 Influenza Type A Antigen Screen - Final Nasal, Unspecified NEGATIVE INFLUENZA A VIRUS AG REFERENCE RANGE: NEGATIVE Influenza Type B Antigen Screen - Final NEGATIVE INFLUENZA B VIRUS AG REFERENCE RANGE: NEGATIVE Med Orders - Current: Current Medications Acetaminophen (Tylenol) 650 mg PO Q4H PRN PRN Reason: Pain (Mild 1-3)/fever Acetaminophen (Tylenol) 650 mg PO Q6H PRN PRN Reason: Pain/Fever Al Hydroxide/Mg Hydroxide (Mag-Al Plus) 30 ml PO QID PRN PRN Reason: gastric distress Albuterol (Proventil Neb Soln) 2.5 mg NEB QID [facility] Last Admin: 05/27/19 07:43 Dose: 2.5 mg Aspirin (Halfprin) 81 mg PO DAILY [facility] Last Admin: 05/27/19 07:42 Dose: 81 mg Carbidopa/Levodopa (Sinemet 25-250 Mg) 1 tab PO TID [facility] Last Admin: 05/27/19 07:42 Dose: 1 tab Ceftriaxone Sodium (Rocephin) 1 gm IVPUSH Q24H [facility] Last Admin: 05/27/19 07:44 Dose: 1 gm Docusate Sodium (Colace) 200 mg PO DAILY [facility] Last Admin: 05/27/19 07:43 Dose: 200 mg Enoxaparin Sodium (Lovenox) 40 mg SUBCUT Q24H [facility] Last Admin: 05/26/19 09:43 Dose: 40 mg Hydrochlorothiazide (Hydrochlorothiazide) 25 mg PO DAILY [facility] Last Admin: 05/27/19 07:42 Dose: 25 mg Azithromycin 500 mg/ Sodium (Chloride) 250 mls @ 250 mls/hr IV Q24H [facility] Last Admin: 05/27/19 07:47 Dose: 250 mls/hr Sodium Chloride (Normal Saline) 1,000 mls @ 80 mls/hr IV ASDIRECTED [facility] Last Admin: 05/26/19 20:18 Dose: 80 mls/hr Ibuprofen (Motrin) 600 mg PO Q6H PRN PRN Reason: Pain (mild 1-3) Lorazepam (Ativan) 0.25 mg PO DAILY@1400 [facility] Last Admin: 05/26/19 14:26 Dose: Not Given Magnesium Oxide (Magnesium Oxide) 250 mg PO WITHBREAKFAST [facility] Last Admin: 05/27/19 07:42 Dose: 250 mg Non-Formulary Medication (Carboxymethylcellulose Sodium [Refresh Tears 0.5%]) 1 drop EYEBOTH TID [facility] Last Admin: 05/26/19 20:04 Dose: Not Given (Rivastigmine [ Rivastigmine] 13.3 Mg/24 Hr Patch)*Pt Own Med* 1 each TOP BEDTIME [facility] Last Admin: 05/26/19 20:06 Dose: 1 each Polyethylene Glycol (Miralax) 17 gm PO DAILY [facility] Last Admin: 05/27/19 07:43 Dose: 17 gm Potassium Chloride (Klor-Con 10) 10 meq PO DAILY [facility] Last Admin: 05/27/19 07:43 Dose: 10 meq Quetiapine Fumarate (Seroquel) 25 mg PO BEDTIME [facility] Last Admin: 05/26/19 20:04 Dose: 25 mg Sertraline HCl (Zoloft) 100 mg PO DAILY [facility] Last Admin: 05/27/19 07:42 Dose: 100 mg Discontinued Medications Acetaminophen (Tylenol) 650 mg PO NOW ONE Stop: 05/26/19 08:03 Last Admin: 05/26/19 08:23 Dose: 650 mg Albuterol/Ipratropium (Duoneb 3.0-0.5 Mg/3 Ml) 3 ml NEB ONETIME ONE Stop: 05/26/19 08:19 Last Admin: 05/26/19 08:38 Dose: 3 ml Azithromycin (Zithromax) Confirm Administered Dose 500 mg .ROUTE .STK-MED ONE Stop: 05/26/19 09:32 Last Admin: 05/26/19 09:34 Dose: Not Given Ceftriaxone Sodium (Rocephin) Confirm Administered Dose 1 gm .ROUTE .STK-MED ONE Stop: 05/26/19 09:33 Last Admin: 05/26/19 09:34 Dose: Not Given Sodium Chloride (Normal Saline) 1,000 mls @ 75 mls/hr IV ASDIRECTED [facility] Last Admin: 05/26/19 07:58 Dose: 75 mls/hr Sodium Chloride (Normal Saline) Confirm Administered Dose 250 mls @ as directed .ROUTE .STK-MED ONE Stop: 05/26/19 09:35 Last Admin: 05/26/19 09:33 Dose: Not Given Lorazepam (Take Home: Lorazepam 0.5 Mg, 2 Tab Pack) packet PO DAILY [facility] Magnesium Oxide (Magnesium Oxide) Confirm Administered Dose 250 mg .ROUTE .STK- MED ONE Stop: 05/26/19 10:00 Last Admin: 05/26/19 10:07 Dose: Not Given Non-Formulary Medication (Magnesium [Magnesium]) 250 mg PO DAILY [facility] Last Admin: 05/26/19 09:45 Dose: Not Given - Exam General: Alert, Oriented (person only), Cooperative HEENT: Mucous Membr. Moist/[place] Neck: Supple Lungs: Decreased Breath Sounds Cardiovascular: Regular Rate, Regular Rhythm GI/Abdominal Exam: Normal Bowel Sounds, Soft, Non-Tender Skin: Warm, Dry Neurological: No New Focal Deficit Sepsis Event Note - Evaluation Sepsis Screening Result: No Definite Risk - Focused Exam Vital Signs: Vital Signs Temp Pulse Resp BP BP Pulse Ox 05/27/19 02:57 98.5 F 83 20 125/73 97 05/27/19 00:00 99.2 F 89 18 109/63 96 Date Exam was Performed: 05/27/19 Time Exam was Performed: 09:55 - Problem List & Annotations (1) UTI (urinary tract infection) SNOMED Code(s): 42065498 Code(s): N39.0 - URINARY TRACT INFECTION, SITE NOT SPECIFIED Status: Acute Priority: High Current Visit: Yes Qualifiers: Indwelling urinary catheter type: unspecified Encounter type: initial encounter (2) Confusion SNOMED Code(s): 379006211 Code(s): R41.0 - DISORIENTATION, UNSPECIFIED Status: Chronic Priority: High Current Visit: Yes (3) Palliative care status SNOMED Code(s): 532655226 Code(s): Z51.5 - ENCOUNTER FOR PALLIATIVE CARE Status: Acute Priority: High Current Visit: Yes (4) Right lower lobe pneumonia SNOMED Code(s): 693884286 Code(s): J18.9 - PNEUMONIA, UNSPECIFIED ORGANISM Status: Acute Priority: High Current Visit: Yes Qualifiers: Aspiration pneumonia type: unspecified - Problem List Review Problem List Initiated/Reviewed/Updated: Yes - My Orders Last 24 Hours: My Active Orders 05/28/19 05:11 BASIC METABOLIC PANEL,BMP [CHEM] AM C-REACTIVE PROTEIN [CHEM] AM CBC WITH AUTO DIFF [HEME] AM - Assessment Assessment:: RLL Pneumonia UTI Palliative Care Patient - Plan Plan:: Patient is more alert this am. Denies pain or shortness of breath. Sitting upright, feeding self. Family notes more responsive and alert today. Lung sounds diminished throughout. No fever this am. Telemetry shows irregular rhythm. EKG atrial fib, new onset this visit. Is currently rate controlled, on daily aspirin. WBC 9.8. Hemoglobin 11.7. Electrolytes normal. CRP is up to 20.2 today. Blood cultures negative. Will continue with Zithromax and Rocephin. Continue daily aspirin. Repeat labs in am.
[2019-05-27] MEDS: Enoxaparin 40 MG/0.4 ML Syringe SUBCUT SCH (09:55)
[2019-05-27] MEDS: Sodium Chloride 0.9% 1,000 ML IV SCH ×2 (10:06→22:47)
[2019-05-27] MEDS: Polyvinyl Alcohol 1.4% Ophth Soln 15 ML Bottle EYEBOTH SCH ×3 (11:41→19:35)
[2019-05-27] MEDS: Non-Formulary Medication 1 Each (Carboxymethylcellulose Sodium [Refresh Tears 0.5%] 1 DROP EYEBOTH SCH (12:45)
[2019-05-27] MEDS: LORazepam 0.5 MG Tab PO SCH (14:01)
[2019-05-27] MEDS: QUEtiapine 25 MG Tab PO SCH (19:41)
[2019-05-28] MEDS: Aspirin 81 MG Tab.EC PO SCH (07:42)
[2019-05-28] MEDS: Docusate Sodium 100 MG Cap PO SCH (07:42)
[2019-05-28] MEDS: Potassium Chloride 10 MEQ Tab.ER PO SCH (07:43)
[2019-05-28] MEDS: Sertraline 100 MG Tab PO SCH (07:43)
[2019-05-28] MEDS: Carbidopa/Levodopa 25-250 MG Tab PO SCH ×3 (07:44→19:59)
[2019-05-28] MEDS: Hydrochlorothiazide 25 MG Tab PO SCH (07:44)
[2019-05-28 07:47] LABS: CHLORIDE,CL 106 mEq/L (98-106); SODIUM,NA 141 mEq/L (136-145)
[2019-05-28] MEDS: Polyethylene Glycol 3350 Powder 17 GM Packet PO SCH (07:48)
[2019-05-28] MEDS: Albuterol 0.083% 2.5 MG/3 ML Neb Soln NEB SCH ×4 (07:48→20:01)
[2019-05-28] MEDS: Enoxaparin 40 MG/0.4 ML Syringe SUBCUT SCH (07:49)
[2019-05-28] MEDS: cefTRIAXone 1 GM Vial IVPUSH SCH (07:51)
[2019-05-28] MEDS: Azithromycin 500 MG in Sodium Chloride 0.9% 250 ML IV SCH (07:55)
[2019-05-28] MEDS: Polyvinyl Alcohol 1.4% Ophth Soln 15 ML Bottle EYEBOTH SCH ×3 (07:56→19:55)
--- NOTE | 2019-05-28 09:05 | PCM.PN ---
- General Info Date of Service: 05/28/19 Admission Dx/Problem (Free Text): RLL Pneumonia UTI Functional Status: Reports: Pain Controlled, Tolerating Diet, Ambulating - Review of Systems General: Reports: Weakness, Fatigue, Malaise. Denies: Fever Pulmonary: Reports: Cough. Denies: Shortness of Breath Cardiovascular: Denies: Chest Pain, Palpitations, Edema Gastrointestinal: Denies: Abdominal Pain, Nausea, Vomiting Genitourinary: Reports: No Symptoms Musculoskeletal: Reports: No Symptoms Skin: Reports: No Symptoms Neurological: Reports: Weakness - Patient Data Vitals - Most Recent: Last Vital Signs Temp 97.5 F 05/28/19 08:00 Pulse 82 05/28/19 04:00 Resp 18 05/28/19 08:00 BP 143/86 H 05/28/19 08:00 Pulse Ox 98 05/28/19 08:00 Weight - Most Recent: 149 lb 12.8 oz I&O - Last 24 Hours: Intake & Output 05/27/19 05/28/19 05/28/19 22:59 06:59 14:59 Intake Total 1000 Balance 1000 Lab Results Last 24 Hours: Laboratory Results - last 24 hr 05/26/19 05/28/19 05/28/19 Range/Units 07:42 07:05 07:05 WBC 6.6 (5.0-10.0) 10^3/uL RBC 3.88 L (4.50-6.00) 10^6/uL Hgb 11.9 L (14.0-18.0) g/dL Hct 36.3 L (40.0-54.0) % MCV 93.6 (82.0-94.0) fL MCH 30.7 (27.0-32.0) pg MCHC 32.8 L (33.0-38.0) g/dL RDW Coeff of Ousmane 12.8 (11.0-15.0) % Plt Count 216 (150-400) 10^3/uL Neut % (Auto) 77.7 (35-85) % Lymph % (Auto) 10.5 (10-55) % [place] % (Auto) 10.2 (0-16) % Eos % (Auto) 1.4 (0-5) % Baso % (Auto) 0.2 (0-3) % Neut # (Auto) 5.13 (1.80-7.00) 10^3/uL Lymph # (Auto) 0.69 L (1.00-4.80) 10^3/uL [place] # (Auto) 0.67 (0.00-0.80) 10^3/uL Eos # (Auto) 0.09 (0.00-0.45) 10^3/uL Baso # (Auto) 0.01 10^3/uL Sodium 141 (136-145) mEq/L Potassium 3.4 L (3.5-5.0) mEq/L Chloride 106 (98-106) mEq/L Carbon Dioxide 28 (21-32) mmol/L BUN 17 (7-18) mg/dL Creatinine 0.8 (0.7-1.3) mg/dL Est Cr Clr Drug Dosing 63.12 mL/min Estimated GFR (MDRD) > 60 (>=60) mL/min Glucose 84 (75-99) mg/dL Calcium 8.0 L (8.4-10.1) mg/dL C-Reactive Protein 12.5 H (0.2-0.8) mg/dL Urine Color Dark yellow (YELLOW) Urine Appearance Clear (CLEAR) Urine pH 5.0 (4.5-8.0) Ur Specific [place] 1.025 H (1.003-1.020) Urine Protein 30 H (NEGATIVE) mg/dL Urine Glucose (UA) Negative (NEGATIVE) mg/dL Urine Ketones Trace H (NEGATIVE) mg/dL Urine Occult Blood Moderate H (NEGATIVE) Urine Nitrite Positive H (NEGATIVE) Urine Bilirubin Small H (NEGATIVE) Urine Urobilinogen 0.2 (0.2-1.0) EU/dL Ur Leukocyte Esterase Trace H (NEGATIVE) Urine RBC 20-30 H (0-5) /HPF Urine WBC 10-20 H (0-5) /HPF Urine WBC Clumps Occasional H (NOT SEEN) /HPF Ur Epithelial Cells Occasional H (NOT SEEN) /HPF Urine Bacteria Many H (NOT SEEN) /HPF Herb Results Last 24 Hours: Microbiology 05/26/19 08:00 Aerobic Blood Culture - Preliminary Blood - Venous - Lab Draw NO GROWTH AFTER 2 DAYS Anaerobic Blood Culture - Preliminary NO GROWTH AFTER 2 DAYS 05/26/19 07:55 Aerobic Blood Culture - Preliminary Blood - Venous NO GROWTH AFTER 2 DAYS Anaerobic Blood Culture - Preliminary NO GROWTH AFTER 2 DAYS 05/26/19 08:45 Urine Culture - Preliminary Urine, Catheterized Gram Negative Rods Med Orders - Current: Current Medications Acetaminophen (Tylenol) 650 mg PO Q4H PRN PRN Reason: Pain (Mild 1-3)/fever Acetaminophen (Tylenol) 650 mg PO Q6H PRN PRN Reason: Pain/Fever Al Hydroxide/Mg Hydroxide (Mag-Al Plus) 30 ml PO QID PRN PRN Reason: gastric distress Albuterol (Proventil Neb Soln) 2.5 mg NEB QID [facility] Last Admin: 05/28/19 07:48 Dose: 2.5 mg Artificial Tears (Liquitears 1.4% Ophth Soln) 0 ml EYEBOTH TID [facility] Last Admin: 05/28/19 07:56 Dose: 1 drop Aspirin (Halfprin) 81 mg PO DAILY [facility] Last Admin: 05/28/19 07:42 Dose: 81 mg Carbidopa/Levodopa (Sinemet 25-250 Mg) 1 tab PO TID [facility] Last Admin: 05/28/19 07:44 Dose: 1 tab Ceftriaxone Sodium (Rocephin) 1 gm IVPUSH Q24H [facility] Last Admin: 05/28/19 07:51 Dose: 1 gm Docusate Sodium (Colace) 200 mg PO DAILY [facility] Last Admin: 05/28/19 07:42 Dose: 200 mg Enoxaparin Sodium (Lovenox) 40 mg SUBCUT Q24H [facility] Last Admin: 05/28/19 07:49 Dose: 40 mg Hydrochlorothiazide (Hydrochlorothiazide) 25 mg PO DAILY [facility] Last Admin: 05/28/19 07:44 Dose: 25 mg Azithromycin 500 mg/ Sodium (Chloride) 250 mls @ 250 mls/hr IV Q24H [facility] Last Admin: 05/28/19 07:55 Dose: 250 mls/hr Sodium Chloride (Normal Saline) 1,000 mls @ 80 mls/hr IV ASDIRECTED [facility] Last Admin: 05/27/19 22:47 Dose: 80 mls/hr Ibuprofen (Motrin) 600 mg PO Q6H PRN PRN Reason: Pain (mild 1-3) Lorazepam (Ativan) 0.25 mg PO DAILY@1400 [facility] Last Admin: 05/27/19 14:01 Dose: 0.25 mg Magnesium Oxide (Magnesium Oxide) 250 mg PO WITHBREAKFAST [facility] Last Admin: 05/28/19 07:43 Dose: 250 mg (Rivastigmine [ Rivastigmine] 13.3 Mg/24 Hr Patch)*Pt Own Med* 1 each TOP BEDTIME [facility] Last Admin: 05/27/19 19:38 Dose: 1 each Polyethylene Glycol (Miralax) 17 gm PO DAILY [facility] Last Admin: 05/28/19 07:48 Dose: 17 gm Potassium Chloride (Klor-Con 10) 10 meq PO DAILY [facility] Last Admin: 05/28/19 07:43 Dose: 10 meq Quetiapine Fumarate (Seroquel) 25 mg PO BEDTIME [facility] Last Admin: 05/27/19 19:41 Dose: 25 mg Sertraline HCl (Zoloft) 100 mg PO DAILY [facility] Last Admin: 05/28/19 07:43 Dose: 100 mg Discontinued Medications Acetaminophen (Tylenol) 650 mg PO NOW ONE Stop: 05/26/19 08:03 Last Admin: 05/26/19 08:23 Dose: 650 mg Albuterol/Ipratropium (Duoneb 3.0-0.5 Mg/3 Ml) 3 ml NEB ONETIME ONE Stop: 05/26/19 08:19 Last Admin: 05/26/19 08:38 Dose: 3 ml Azithromycin (Zithromax) Confirm Administered Dose 500 mg .ROUTE .STK-MED ONE Stop: 05/26/19 09:32 Last Admin: 05/26/19 09:34 Dose: Not Given Ceftriaxone Sodium (Rocephin) Confirm Administered Dose 1 gm .ROUTE .STK-MED ONE Stop: 05/26/19 09:33 Last Admin: 05/26/19 09:34 Dose: Not Given Sodium Chloride (Normal Saline) 1,000 mls @ 75 mls/hr IV ASDIRECTED [facility] Last Admin: 05/26/19 07:58 Dose: 75 mls/hr Sodium Chloride (Normal Saline) Confirm Administered Dose 250 mls @ as directed .ROUTE .STK-MED ONE Stop: 05/26/19 09:35 Last Admin: 05/26/19 09:33 Dose: Not Given Lorazepam (Take Home: Lorazepam 0.5 Mg, 2 Tab Pack) packet PO DAILY [facility] Magnesium Oxide (Magnesium Oxide) Confirm Administered Dose 250 mg .ROUTE .STK- MED ONE Stop: 02/02/20 10:00 Last Admin: 05/26/19 10:07 Dose: Not Given Non-Formulary Medication (Carboxymethylcellulose Sodium [Refresh Tears 0.5%]) 1 drop EYEBOTH TID [facility] Last Admin: 05/27/19 12:45 Dose: Not Given Non-Formulary Medication (Magnesium [Magnesium]) 250 mg PO DAILY [facility] Last Admin: 05/26/19 09:45 Dose: Not Given - Exam General: Alert, Oriented (oriented to person and place), Cooperative HEENT: Mucous Membr. Moist/[place] Neck: Supple Lungs: Decreased Breath Sounds Cardiovascular: Irregular Rhythm GI/Abdominal Exam: Normal Bowel Sounds, Soft, Non-Tender Extremities: Normal Inspection, No Pedal Edema Skin: Warm, Dry Neurological: No New Focal Deficit Sepsis Event Note - Evaluation Sepsis Screening Result: No Definite Risk - Focused Exam Vital Signs: Vital Signs Temp Pulse Resp BP Pulse Ox 05/28/19 08:00 97.5 F 18 143/86 H 98 05/28/19 04:00 82 20 05/28/19 00:00 97.7 F 97 20 121/86 96 Date Exam was Performed: 05/28/19 Time Exam was Performed: 08:59 - Problem List & Annotations (1) UTI (urinary tract infection) SNOMED Code(s): 81337139 Code(s): N39.0 - URINARY TRACT INFECTION, SITE NOT SPECIFIED Status: Acute Priority: High Current Visit: Yes Qualifiers: Indwelling urinary catheter type: unspecified Encounter type: initial encounter (2) Confusion SNOMED Code(s): 762118443 Code(s): R41.0 - DISORIENTATION, UNSPECIFIED Status: Chronic Priority: High Current Visit: Yes (3) Palliative care status SNOMED Code(s): 069152164 Code(s): Z51.5 - ENCOUNTER FOR PALLIATIVE CARE Status: Acute Priority: High Current Visit: Yes (4) Right lower lobe pneumonia SNOMED Code(s): 072361837 Code(s): J18.9 - PNEUMONIA, UNSPECIFIED ORGANISM Status: Acute Priority: High Current Visit: Yes Qualifiers: Aspiration pneumonia type: unspecified - Problem List Review Problem List Initiated/Reviewed/Updated: Yes - Assessment Assessment:: RLL Pneumonia UTI Palliative Care Patient - Plan Plan:: Patient is more alert this am. Denies pain or shortness of breath. Sitting upright, feeding self. Family notes more responsive and alert today. Lung sounds diminished throughout. No fever this am. Telemetry shows irregular rhythm. EKG atrial fib, new onset this visit. Is currently rate controlled, on daily aspirin. WBC 9.8. Hemoglobin 11.7. Electrolytes normal. CRP is up to 20.2 today. Blood cultures negative. Will continue with Zithromax and Rocephin. Continue daily aspirin. Repeat labs in am. 05-28-2019 Patient alert. Admits to feeling "tired out". Appetite has been good. Does have cough with clear sputum at times. Lung sounds diminished. Afebrile. Telemetry continues NSR. WBC 6.6. Hemoglobin 11.9. Sodium 141. Potassium 3.4. CRP improved to 12.5. Urine culture shows gram negative rods. Will continue with Zithromax and Rocephin. Continue cardiac monitoring. Possible return to jail tomorrow if patient remains stable.
[2019-05-28] MEDS: Sodium Chloride 0.9% 1,000 ML IV SCH ×2 (12:20→23:47)
[2019-05-28] MEDS: LORazepam 0.5 MG Tab PO SCH (13:47)
[2019-05-28] MEDS: QUEtiapine 25 MG Tab PO SCH (19:59)
[2019-05-29] MEDS: Enoxaparin 40 MG/0.4 ML Syringe SUBCUT SCH (07:50)
[2019-05-29] MEDS: Albuterol 0.083% 2.5 MG/3 ML Neb Soln NEB SCH (07:50)
[2019-05-29] MEDS: Polyvinyl Alcohol 1.4% Ophth Soln 15 ML Bottle EYEBOTH SCH (07:52)
[2019-05-29] MEDS: Polyethylene Glycol 3350 Powder 17 GM Packet PO SCH (07:53)
[2019-05-29] MEDS: cefTRIAXone 1 GM Vial IVPUSH SCH (07:53)
[2019-05-29] MEDS: Azithromycin 500 MG in Sodium Chloride 0.9% 250 ML IV SCH (07:56)
[2019-05-29] MEDS: Carbidopa/Levodopa 25-250 MG Tab PO SCH (07:59)
[2019-05-29] MEDS: Hydrochlorothiazide 25 MG Tab PO SCH (07:59)
[2019-05-29] MEDS: Sertraline 100 MG Tab PO SCH (08:00)
[2019-05-29] MEDS: Potassium Chloride 10 MEQ Tab.ER PO SCH (08:00)
[2019-05-29] MEDS: Docusate Sodium 100 MG Cap PO SCH (08:00)
[2019-05-29] MEDS: Aspirin 81 MG Tab.EC PO SCH (08:01)
[2019-05-29 08:06] VITALS: BP 106/70; PULSE 67
--- NOTE | 2019-05-29 20:53 | PCM.DCSUM1 ---
Discharge Summary - Hospital Course Free Text/Narrative:: Reggie is an 83 [address] from [facility] who presented to ER with concerns of fever of 102 and tachypnea. History of dementia but more confused than his norm. WBC elevated at 12 with left shift. Xray shows large RLL infiltrate. Started on IV Rocephin and Zithromax. Neb treatments. IV fluids. Diagnosis: Stroke: No - Discharge Data Discharge Date: 05/29/19 Discharge Disposition: Home, Self-Care 01 Condition: Fair - Referral to Home Health Primary Care Physician: PCP None - Discharge Diagnosis/Problem(s) (1) UTI (urinary tract infection) SNOMED Code(s): 61881685 ICD Code: N39.0 - URINARY TRACT INFECTION, SITE NOT SPECIFIED Status: Acute Priority: High Qualifiers: Indwelling urinary catheter type: unspecified Encounter type: initial encounter (2) Confusion SNOMED Code(s): 130911920 ICD Code: R41.0 - DISORIENTATION, UNSPECIFIED Status: Chronic Priority: High (3) Palliative care status SNOMED Code(s): 308149853 ICD Code: Z51.5 - ENCOUNTER FOR PALLIATIVE CARE Status: Acute Priority: High (4) Pneumonia SNOMED Code(s): 422143420 ICD Code: J18.9 - PNEUMONIA, UNSPECIFIED ORGANISM Status: Acute Priority : High Qualifiers: Pneumonia type: due to other aerobic Gram-negative bacteria Laterality: right Lung location: lower lobe of lung Qualified Code(s): J15.6 - Pneumonia due to other Gram-negative bacteria - Patient Summary/Data Complications: none Hospital Course: Patient feeling better. More conversive. Denies shortness of breath or chest pain. Oxygen sats greater than 95% on room air. Lung sounds diminished but clear. Is eating well. Ambulating in halls with staff. Does continues to have productive sputum at times, blood-tinged. Blood cultures were negative. Urine culture did grow enterobacter, sensitive to cephalosporins as well. WBC has normalized, CRP did peak at 20.5, now 12.5. Patient did develop new onset atrial fib, controlled rate. Will continue with aspirin. Will discharge back to [facility], continue Ceftin and nebs. - Patient Instructions Diet: Usual Diet as Tolerated Activity: As Tolerated - Discharge Plan *PRESCRIPTION DRUG MONITORING PROGRAM REVIEWED*: Not Applicable *COPY OF PRESCRIPTION DRUG MONITORING REPORT IN PATIENT KATY: Not Applicable Prescriptions/Med Rec: Albuterol [Proventil Neb Soln] 2.5 mg NEB QID #1 box Cefuroxime Axetil [Ceftin] 250 mg PO BID #14 tablet Home Medications: Home Meds Aspirin [Halfprin] 81 mg PO DAILY 05/30/15 [History] Carbidopa/Levodopa [Carbidopa-Levodopa 25-250] 1 each PO TID 05/30/15 [History] Docusate Sodium 200 mg PO DAILY 05/30/15 [History] Magnesium 250 mg PO DAILY 05/30/15 [History] Polyethylene Glycol 3350 [Miralax] 17 gm PO DAILY 05/30/15 [History] Acetaminophen [Tylenol] 650 mg PO Q6HR PRN 05/19/18 [History] LORazepam 0.25 mg PO DAILY 05/19/18 [History] Mag Hydrox/Aluminum Hyd/Simeth [Antacid Plus Anti-Gas Relf Liq] 30 ml PO QID PRN 05/19/18 [History] QUEtiapine [SEROquel] 25 mg PO BEDTIME 05/19/18 [History] Rivastigmine 1 patch TOP BEDTIME 05/19/18 [History] Sertraline HCl 100 mg PO DAILY 05/19/18 [History] Carboxymethylcellulose Sodium [Refresh Tears 0.5%] 1 drop EYEBOTH TID 05/26/19 [ History] Potassium Chloride [Klor-Con 10] 10 meq PO DAILY 05/26/19 [History] hydroCHLOROthiazide [Hydrochlorothiazide] 25 mg PO DAILY 05/26/19 [History] Albuterol [Proventil Neb Soln] 2.5 mg NEB QID #1 box 05/29/19 [Rx] Cefuroxime Axetil [Ceftin] 250 mg PO BID #14 tablet 05/29/19 [Rx] Forms: ED Department Discharge Referrals: PCP,None [Primary Care Provider] - - Discharge Summary/Plan Comment DC Time >30 min.: No - General Info Date of Service: 05/29/19 Admission Dx/Problem (Free Text: RLL Pneumonia UTI Functional Status: Reports: Pain Controlled, Tolerating Diet, Ambulating - Review of Systems General: Reports: Weakness, Fatigue. Denies: Fever HEENT: Reports: No Symptoms Pulmonary: Reports: Cough, Sputum. Denies: Shortness of Breath Cardiovascular: Denies: Chest Pain, Edema, Lightheadedness Gastrointestinal: Denies: Abdominal Pain, Nausea, Vomiting Genitourinary: Reports: No Symptoms Musculoskeletal: Reports: No Symptoms Skin: Reports: No Symptoms Neurological: Reports: No Symptoms - Patient Data Vitals - Most Recent: Last Vital Signs Temp 97.4 F 05/29/19 08:00 Pulse 67 05/29/19 08:00 Resp 18 05/29/19 08:00 BP 106/70 05/29/19 08:00 Pulse Ox 99 05/29/19 08:00 Weight - Most Recent: 149 lb 12.8 oz I&O - Last 24 hours: Intake & Output 05/29/19 05/29/19 05/29/19 06:59 14:59 22:59 Intake Total 916 Balance 916 HUMBERTO Results - Last 24 hrs: Microbiology 05/26/19 07:55 Aerobic Blood Culture - Preliminary Blood - Venous Anaerobic Blood Culture - Preliminary NO GROWTH AFTER 3 DAYS 05/26/19 08:00 Aerobic Blood Culture - Preliminary Blood - Venous - Lab Draw NO GROWTH AFTER 3 DAYS Anaerobic Blood Culture - Preliminary NO GROWTH AFTER 3 DAYS Med Orders - Current: Current Medications Discontinued Medications Acetaminophen (Tylenol) 650 mg PO NOW ONE Stop: 05/26/19 08:03 Last Admin: 05/26/19 08:23 Dose: 650 mg Acetaminophen (Tylenol) 650 mg PO Q4H PRN PRN Reason: Pain (Mild 1-3)/fever Acetaminophen (Tylenol) 650 mg PO Q6H PRN PRN Reason: Pain/Fever Al Hydroxide/Mg Hydroxide (Mag-Al Plus) 30 ml PO QID PRN PRN Reason: gastric distress Albuterol (Proventil Neb Soln) 2.5 mg NEB QID [facility] Last Admin: 05/29/19 07:50 Dose: 2.5 mg Albuterol/Ipratropium (Duoneb 3.0-0.5 Mg/3 Ml) 3 ml NEB ONETIME ONE Stop: 05/26/19 08:19 Last Admin: 05/26/19 08:38 Dose: 3 ml Artificial Tears (Liquitears 1.4% Ophth Soln) 0 ml EYEBOTH TID [facility] Last Admin: 05/29/19 07:52 Dose: 1 drop Aspirin (Halfprin) 81 mg PO DAILY [facility] Last Admin: 05/29/19 08:01 Dose: 81 mg Azithromycin (Zithromax) Confirm Administered Dose 500 mg .ROUTE .[facility]-MED ONE Stop: 05/26/19 09:32 Last Admin: 05/26/19 09:34 Dose: Not Given Carbidopa/Levodopa (Sinemet 25-250 Mg) 1 tab PO TID [facility] Last Admin: 05/29/19 07:59 Dose: 1 tab Ceftriaxone Sodium (Rocephin) 1 gm IVPUSH Q24H [facility] Stop: 06/01/19 23:00 Last Admin: 05/29/19 07:53 Dose: 1 gm Ceftriaxone Sodium (Rocephin) Confirm Administered Dose 1 gm .ROUTE .[employer]-MED ONE Stop: 05/26/19 09:33 Last Admin: 05/26/19 09:34 Dose: Not Given Docusate Sodium (Colace) 200 mg PO DAILY [facility] Last Admin: 05/29/19 08:00 Dose: 200 mg Enoxaparin Sodium (Lovenox) 40 mg SUBCUT Q24H [facility] Last Admin: 05/29/19 07:50 Dose: 40 mg Hydrochlorothiazide (Hydrochlorothiazide) 25 mg PO DAILY [facility] Last Admin: 05/29/19 07:59 Dose: 25 mg Sodium Chloride (Normal Saline) 1,000 mls @ 75 mls/hr IV ASDIRECTED [facility] Last Admin: 05/26/19 07:58 Dose: 75 mls/hr Azithromycin 500 mg/ Sodium (Chloride) 250 mls @ 250 mls/hr IV Q24H [facility] Stop: 06/01/19 23:00 Last Admin: 05/29/19 07:56 Dose: 250 mls/hr Sodium Chloride (Normal Saline) 1,000 mls @ 80 mls/hr IV ASDIRECTED [facility] Last Admin: 05/28/19 23:47 Dose: 80 mls/hr Sodium Chloride (Normal Saline) Confirm Administered Dose 250 mls @ as directed .ROUTE .[employer]-MED ONE Stop: 05/26/19 09:35 Last Admin: 05/26/19 09:33 Dose: Not Given Ibuprofen (Motrin) 600 mg PO Q6H PRN PRN Reason: Pain (mild 1-3) Lorazepam (Take Home: Lorazepam 0.5 Mg, 2 Tab Pack) packet PO DAILY [facility] Lorazepam (Ativan) 0.25 mg PO DAILY@1400 [facility] Last Admin: 05/28/19 13:47 Dose: 0.25 mg Magnesium Oxide (Magnesium Oxide) Confirm Administered Dose 250 mg .ROUTE .[facility]- MED ONE Stop: 05/26/19 10:00 Last Admin: 05/26/19 10:07 Dose: Not Given Magnesium Oxide (Magnesium Oxide) 250 mg PO WITHBREAKFAST [facility] Last Admin: 05/29/19 07:59 Dose: 250 mg Non-Formulary Medication (Carboxymethylcellulose Sodium [Refresh Tears 0.5%]) 1 drop EYEBOTH TID [facility] Last Admin: 05/27/19 12:45 Dose: Not Given Non-Formulary Medication (Magnesium [Magnesium]) 250 mg PO DAILY [facility] Last Admin: 05/26/19 09:45 Dose: Not Given (Rivastigmine [ Rivastigmine] 13.3 Mg/24 Hr Patch)*Pt Own Med* 1 each TOP BEDTIME [facility] Last Admin: 05/28/19 19:55 Dose: 1 each Polyethylene Glycol (Miralax) 17 gm PO DAILY [facility] Last Admin: 05/29/19 07:53 Dose: 17 gm Potassium Chloride (Klor-Con 10) 10 meq PO DAILY [facility] Last Admin: 05/29/19 08:00 Dose: 10 meq Quetiapine Fumarate (Seroquel) 25 mg PO BEDTIME [facility] Last Admin: 05/28/19 19:59 Dose: 25 mg Sertraline HCl (Zoloft) 100 mg PO DAILY [facility] Last Admin: 05/29/19 08:00 Dose: 100 mg - Exam General: Reports: Alert, Oriented (person and place) HEENT: Reports: Mucous Membr. Moist/[place] Neck: Reports: Supple Lungs: Reports: Decreased Breath Sounds Cardiovascular: Reports: Irregular Rhythm GI/Abdominal Exam: Normal Bowel Sounds, Soft, Non-Tender Extremities: Normal Inspection, No Pedal Edema Skin: Reports: Warm, Dry Neurological: Reports: No New Focal Deficit
== END 2019-05-29 09:36 | disposition home or self-care (01) | DRG 178 ==
LOC: CC.ED 07:41 → CC.MS 08:41 → UNDOADMIN 08:42 → CC.MS 08:42
PROVIDERS: ADMIT Nurse Practitioner; ATTEND Family Medicine
DX: J18.9 Pneumonia, unspecified organism (principal); J15.6 Pneumonia due to other Gram-negative bacteria; N39.0 Urinary tract infection, site not specified; E78.00 Pure hypercholesterolemia, unspecified; J30.9 Allergic rhinitis, unspecified; I10 Essential (primary) hypertension; K58.9 Irritable bowel syndrome, unspecified; G89.29 Other chronic pain; R10.9 Unspecified abdominal pain; F03.90 Unspecified dementia, unspecified severity, without behavioral disturbance, psychotic disturbance, mood disturbance, and anxiety; M19.90 Unspecified osteoarthritis, unspecified site; F41.9 Anxiety disorder, unspecified; E53.8 Deficiency of other specified B group vitamins; E27.1 Primary adrenocortical insufficiency; E55.9 Vitamin D deficiency, unspecified; K59.09 Other constipation; Z85.46 Personal history of malignant neoplasm of prostate; G20 Parkinson's disease; Z51.5 Encounter for palliative care; I48.91 Unspecified atrial fibrillation; Z86.73 Personal history of transient ischemic attack (TIA), and cerebral infarction without residual deficits; Z98.890 Other specified postprocedural states; Z79.82 Long term (current) use of aspirin; Z79.899 Other long term (current) drug therapy
CPT/HCPCS: 36415; 71045; 80053; 81001; 83605; 83735; 85025; 86140; 87040 ×2; 87088; 87804 ×2; 93005; 94640; A9270; J7030; 80048; 87086; 87186; 93010; 96360; 99285-25; J0456; J0696; J1650; J7050; J7613-GY; J7620-GY